=== PATIENT | female | born 1945 | race Caucasian/White ===

== ENCOUNTER 2023-04-13 12:43 | Day surgery (SDC) | payer MEDICARE, SELFPAY ==
--- NOTE | 2023-04-12 12:04 | P.CONAN_ITS ---
Documented by User: Mimi Irving NP 04/12/23 12:05 HPI - Anesthesia Eval Consult details Narrative: 78yo F for Colonoscopy hx RUL lobectomy PMFSH Past Medical History Medical History Heart murmur Abnormal colonoscopy Diabetes Cervical stenosis of spine Cervical polyp Depression Hyperlipidemia HTN (hypertension) Surgical History Surgical History Total knee replacement status History of salpingectomy Hx of tonsillectomy History of tubal ligation H/O dilation and curettage H/O breast biopsy History of lobectomy of lung Social History Social History Patient Tobacco Use Status: Former Tobacco user Tobacco use type: Cigarette Use of substances other than those prescribed or required for medical reasons: No Are you DNR?: No Advance Directives: No Advance Directives Information Provided: Yes Meds Allergies Allergy/AdvReac Type Severity Reaction Status Date / Time Sulfa (Sulfonamide Allergy Intermediate ITCHING Verified 04/13/23 13:48 Antibiotics) Home Medications Medication Instructions Recorded Confirmed Last Taken Type amlodipine 5 mg tablet 5 mg PO DAILY 04/12/23 04/13/23 04/13/23 History atorvastatin 80 mg tablet 80 mg PO DAILY 04/12/23 Unknown History duloxetine 30 mg capsule,delayed 30 mg PO DAILY 04/12/23 Unknown History release duloxetine 60 mg capsule,delayed 60 mg PO DAILY 04/12/23 Unknown History release fluoxetine 20 mg capsule 20 mg PO DAILY 04/12/23 Unknown History hydrochlorothiazide 25 mg tablet 25 mg PO DAILY 04/12/23 Unknown History hydroxyzine HCl 10 mg tablet 10 mg PO NEEDED 04/12/23 Unknown History metformin 750 mg tablet,extended 750 mg PO BID 04/12/23 Unknown History release 24 hr metoprolol succinate 100 mg 100 mg PO DAILY 04/12/23 04/13/23 04/13/23 History tablet,extended release 24 hr omeprazole 20 mg capsule,delayed 20 mg PO DAILY 04/12/23 Unknown History release ondansetron 4 mg disintegrating 4 mg PO BID PRN nausea/vomiting 04/12/23 Unknown History tablet potassium chloride 10 mEq 10 meq PO DAILY 04/12/23 Unknown History capsule,extended release ropinirole 0.25 mg tablet 0.25 mg PO BEDTIME 04/12/23 Unknown History sertraline 100 mg tablet 200 mg PO DAILY 04/12/23 Unknown History triamcinolone acetonide 0.1 % appl topical DAILY 04/12/23 Unknown History topical cream Exam Exam Date and Time: April 12, 2023 1204 Assessment and Plan Assessment Anesthesia Assessment: Chart Reviewed Documented by User: Viv Lopez MD 04/13/23 14:26 [facility] Past Medical History Medical History Heart murmur Abnormal colonoscopy Diabetes Cervical stenosis of spine Cervical polyp Depression Hyperlipidemia HTN (hypertension) Family History Family history of problems with anesthesia: No Surgical History Surgical History Total knee replacement status History of salpingectomy Hx of tonsillectomy History of tubal ligation H/O dilation and curettage H/O breast biopsy History of lobectomy of lung History of Problems with Anesthesia: No Social History Social History Patient Tobacco Use Status: Former Tobacco user Tobacco use type: Cigarette Use of substances other than those prescribed or required for medical reasons: No Are you DNR?: No Advance Directives: No Advance Directives Information Provided: Yes Meds Allergies Allergy/AdvReac Type Severity Reaction Status Date / Time Sulfa (Sulfonamide Allergy Intermediate ITCHING Verified 04/13/23 13:48 Antibiotics) Home Medications Medication Instructions Recorded Confirmed Last Taken Type amlodipine 5 mg tablet 5 mg PO DAILY 04/12/23 04/13/23 04/13/23 History atorvastatin 80 mg tablet 80 mg PO DAILY 04/12/23 Unknown History duloxetine 30 mg capsule,delayed 30 mg PO DAILY 04/12/23 Unknown History release duloxetine 60 mg capsule,delayed 60 mg PO DAILY 04/12/23 Unknown History release fluoxetine 20 mg capsule 20 mg PO DAILY 04/12/23 Unknown History hydrochlorothiazide 25 mg tablet 25 mg PO DAILY 04/12/23 Unknown History hydroxyzine HCl 10 mg tablet 10 mg PO NEEDED 04/12/23 Unknown History metformin 750 mg tablet,extended 750 mg PO BID 04/12/23 Unknown History release 24 hr metoprolol succinate 100 mg 100 mg PO DAILY 04/12/23 04/13/23 04/13/23 History tablet,extended release 24 hr omeprazole 20 mg capsule,delayed 20 mg PO DAILY 04/12/23 Unknown History release ondansetron 4 mg disintegrating 4 mg PO BID PRN nausea/vomiting 04/12/23 Unknown History tablet potassium chloride 10 mEq 10 meq PO DAILY 04/12/23 Unknown History capsule,extended release ropinirole 0.25 mg tablet 0.25 mg PO BEDTIME 04/12/23 Unknown History sertraline 100 mg tablet 200 mg PO DAILY 04/12/23 Unknown History triamcinolone acetonide 0.1 % appl topical DAILY 04/12/23 Unknown History topical cream Exam Airway Mallampati Class: II TM Dist: >3cm Heart: rrr Lungs: cta Assessment and Plan Assessment Anesthesia Assessment: Anesthesia Plan Discussed and Chart Reviewed (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
[2023-04-13 13:18] VITALS: BMI 26.1
[2023-04-13 13:38] VITALS: BP 125/66; PULSE 77; RESP 16; TEMP 36.2; O2SAT 98
[2023-04-13] MEDS: Lactated Ringers 1,000 ML 100 ML IVCONT (13:49)
[2023-04-13 14:10] LABS: Glucose, Whole Blood 133 mg/dL (60-115)
--- NOTE | 2023-04-13 14:44 | MHC.SHP ---
Pre-Procedural Eval Section A Date of Service: 04/13/23 The patient is an INPATIENT: No Changes since office visit: No Cold of Flu in the past 2 weeks, No New Medical Problems, No Changes in Medication and No Patient answered all questions The History & Physical has been completed within 30 days and I have reviewed it.: Yes Section B Chief Complaint: Abnormal results of function studies of other orga Allergies: Allergies Allergy/AdvReac Type Severity Reaction Status Date / Time Sulfa (Sulfonamide Allergy Intermediate ITCHING Verified 04/13/23 13:48 Antibiotics) Plan I have reviewed the history and physical and performed a pertinent physical examination on my patient. No changes have occurred unless specified. Time Spent With Patient Time: Total time managing care of this patient today ____ minutes.
--- NOTE | 2023-04-13 15:23 | PM.OP ---
Brief Operative Note Date of Service: 04/13/23 Pre-op diagnosis: abnl pet scan Post-op diagnosis: same Surgeon: Igor Blackburn Anesthesia: MAC Was an Floorworker Distributor used for this Procedure?: No Estimated blood loss (mL): 2 Pathology: other Condition: stable Disposition: PACU
[2023-04-13 15:24] VITALS: BP 140/64; PULSE 67; RESP 16; TEMP 36.4; O2SAT 97
[2023-04-13 15:39] VITALS: BP 135/57; PULSE 70; RESP 16; O2SAT 97
[2023-04-13 15:53] VITALS: BP 157/64; PULSE 65; RESP 16; O2SAT 99
[2023-04-13 16:07] VITALS: BP 159/68; PULSE 71; RESP 16; O2SAT 99
[2023-04-13 16:22] VITALS: BP 121/84; PULSE 67; RESP 20; TEMP 36.5; O2SAT 100
--- NOTE | 2023-04-13 17:46 | OP_ITS ---
DATE OF SERVICE: 04/13/2023 SURGEON: Igor Blackburn MD INDICATIONS: Abnormal PET scan of the abdomen and colon. PREOPERATIVE DIAGNOSIS: POSTOPERATIVE DIAGNOSIS: PROCEDURE PERFORMED: Colonoscopy to the cecum with biopsy. ESTIMATED BLOOD LOSS: COMPLICATIONS: ANESTHESIA: Monitored anesthesia care. ASSISTANTS: SPECIMENS: DESCRIPTION OF PROCEDURE: History and physical performed. The risks and benefits of the procedure were explained to the patient. Informed consent was obtained. The patient was placed in the left lateral decubitus position. A digital rectal exam was performed and was found to be normal. The Olympus pediatric video colonoscope was introduced into the rectum and advanced to the cecum. The cecum was identified by transillumination, palpation, and identification of ileocecal valve. Examination was performed. The scope was removed. She tolerated the procedure well and was taken to recovery room in stable condition. FINDINGS: The terminal ileum was not examined. There was a polyp on the inferior aspect of the ileocecal valve, which was removed with biopsy forceps. Two other hyperplastic appearing polyps in the rectosigmoid were identified, but not biopsied. There was no lesion to correspond with the findings on the PET scan in the vicinity of the splenic flexure. Mucosa appeared normal without a mass. There was mild sigmoid diverticulosis. Retroflexed examination showed some internal hemorrhoids. IMPRESSION: Colon polyp. RECOMMENDATION: Follow up the biopsy results. MD KATALINA Vargas/ALONSO / [id number]
== END 2023-04-13 16:40 | disposition home or self-care (01) ==
PROVIDERS: PCP Internal Medicine; Visit Provider Internal Medicine Gastroenterology
PROC: 0DJD8ZZ Inspection of Lower Intestinal Tract, Via Natural or Artificial Opening Endoscopic (ICD-10-PCS; CPT 45378; principal; 2023-04-13 13:50)
DX: R93.3 Abnormal findings on diagnostic imaging of other parts of digestive tract (principal); Z86.010 Personal history of colon polyps; K51.40 Inflammatory polyps of colon without complications; K57.30 Diverticulosis of large intestine without perforation or abscess without bleeding; K64.8 Other hemorrhoids; E11.9 Type 2 diabetes mellitus without complications; I10 Essential (primary) hypertension; E78.5 Hyperlipidemia, unspecified; M48.02 Spinal stenosis, cervical region; F32.A Depression, unspecified; Z85.118 Personal history of other malignant neoplasm of bronchus and lung; Z92.21 Personal history of antineoplastic chemotherapy; Z90.2 Acquired absence of lung [part of]; Z79.82 Long term (current) use of aspirin; Z79.84 Long term (current) use of oral hypoglycemic drugs; Z79.899 Other long term (current) drug therapy; Z87.891 Personal history of nicotine dependence
CPT/HCPCS: 45380; 82947; 88305

== ENCOUNTER 2024-01-05 06:52 | Outpatient (REF) | payer MEDICARE, SELFPAY ==
--- NOTE | ~2024-01-05 | XR_ITS ---
EXAMINATION: XR KNEE, RIGHT CLINICAL INFORMATION: Pain in right knee COMPARISON: None available. TECHNIQUE: Three views of the right knee. FINDINGS: Status post right knee arthroplasty. Hardware appears intact. Moderate joint effusion. Bones are diffusely demineralized. XR/XR knee RT 3V IMPRESSION: Status post right knee arthroplasty. Hardware appears intact. Moderate joint effusion.
== END 2024-01-05 06:53 | disposition home or self-care (01) ==
LOC: HO.HOSX 06:52
PROVIDERS: Visit Provider Orthopaedic Surgery
DX: M25.561 Pain in right knee (principal)
CPT/HCPCS: 73562; 99212

== ENCOUNTER 2024-01-05 13:09 | Outpatient (AMB) | payer MEDICARE, SELFPAY ==
--- NOTE | 2024-01-05 13:11 | MHC.OFFVIS ---
Intake Visit Reasons: N/P RT TKA 01/05/[address] Mcpherson Note: Jaylene 78 yr old female presents today for a new patient to re-establish care with Dr. Mendoza. Hx of RT TKA 01/05/[address] Mendoza. Pt states she is feeling great. She reports mild discomfort in her right knee. She has not take any medicines for discomfort. She continues with her home exercise program. Allergies Sulfa (Sulfonamide Antibiotics) Allergy (Intermediate, Verified 01/05/24 13:12) ITCHING Medication List - Last Reconciled 01/06/24 by Davin Mendoza MD amlodipine 5 mg PO DAILY atorvastatin 80 mg PO DAILY duloxetine 30 mg PO DAILY duloxetine 60 mg PO DAILY metformin ER 750 mg PO BID metoprolol succinate ER 100 mg PO DAILY omeprazole 20 mg PO DAILY potassium chloride ER 10 mEq PO DAILY ropinirole 0.25 mg PO BEDTIME triamcinolone acetonide 0.1% appl topical DAILY PFSH Medical History Heart murmur Abnormal colonoscopy Diabetes Cervical stenosis of spine Cervical polyp Depression Hyperlipidemia HTN (hypertension) Surgical History Total knee replacement status History of salpingectomy Hx of tonsillectomy History of tubal ligation H/O dilation and curettage H/O breast biopsy History of lobectomy of lung Social History Patient Tobacco Use Status: Former Tobacco user Tobacco use type: Cigarette Physical Exam Const Other: Well-nourished well-developed very friendly female awake alert and oriented x3 in no acute distress Extrem Other: Bilateral lower extremity examination shows good capillary refill, no skin lesions noted, normal sensation light touch Right knee examination shows the surgical incision is well healed, no erythema, full active extension and flexion to 120 degrees, her patella tracks well Results Reviewed Results Reviewed: X-rays of the patient's right knee show a total knee arthroplasty in good position with no signs of loosening, no acute bony abnormalities Assessment & Plan Assessment & Plan (1) Right knee pain: Code(s): M25.561 - Pain in right knee Category: Medical Plan Ms. Mulligan continues to do well after undergoing right total knee replacement surgery on 01/05/2019. She will continue with her home exercise program. She does know to take antibiotics before any dental work. She will contact me prior to her annual follow-up appointment should any questions or concerns arise. Feel free to call me at any time should questions regarding her orthopedic management arise. I spent 21 minutes in reviewing the patient's records and imaging studies, seeing the patient and documenting in the medical record. Orders: Orders XR knee RT 3V 01/05/24 M25.561 - Pain in right knee Coding Level of Care Code Est Pt Level 2 (12690) Diagnoses Right knee pain M25.561
== END 2024-01-05 14:02 | disposition home or self-care (01) ==
PROVIDERS: PCP Internal Medicine; Visit Provider Orthopaedic Surgery
DX: M25.561 Pain in right knee (principal)
CPT/HCPCS: 99213

== ENCOUNTER 2025-01-03 09:41 | Outpatient (AMB) | payer MEDICARE, SELFPAY ==
--- NOTE | 2025-01-03 10:16 | MHC.OFFVIS ---
Vital Signs 01/03/25 10:20 Height 5 ft 1 in Weight 138 lb BMI 26.1 Intake Visit Reasons: OV-RT TKA 01/05/19 Intake Note: Jaylene is an 79 year old female who presents today for a yearly follow up status post right total knee arthroplasty performed 01/05/2019. Patient reports she is doing well. She continues taking her antibiotics for dental procedures. She continues with her home exercise program. She denies any fevers or chills Allergies Sulfa (Sulfonamide Antibiotics) Allergy (Intermediate, Verified 01/05/24 13:12) ITCHING Medication List - Last Reconciled 01/03/25 by Davin Mendoza MD amlodipine 5 mg PO DAILY atorvastatin 80 mg PO DAILY duloxetine 30 mg PO DAILY duloxetine 60 mg PO DAILY metformin ER 750 mg PO BID metoprolol succinate ER 100 mg PO DAILY omeprazole 20 mg PO DAILY potassium chloride ER 10 mEq PO DAILY ropinirole 0.25 mg PO BEDTIME triamcinolone acetonide 0.1% appl topical DAILY PFSH Medical History Heart murmur Abnormal colonoscopy Diabetes Cervical stenosis of spine Cervical polyp Depression Hyperlipidemia HTN (hypertension) Surgical History Total knee replacement status History of salpingectomy Hx of tonsillectomy History of tubal ligation H/O dilation and curettage H/O breast biopsy History of lobectomy of lung Social History Patient Tobacco Use Status: Former Tobacco user Tobacco use type: Cigarette Physical Exam Vital Signs: BMI result Body Mass Index 26.1 Const Other: Well-nourished well-developed very friendly female awake alert and oriented x3 in no acute distress Extrem Other: Bilateral lower extremity examination shows good capillary refill, no skin lesions noted, normal sensation light touch Right knee examination shows that the surgical incision is well healed, no erythema, full active extension and flexion to 120 degrees, her patella tracks well Results Reviewed Results Reviewed: X-rays of the patient's right knee taken today show a total knee arthroplasty in good position with no signs of loosening, no acute bony abnormalities Assessment & Plan Assessment & Plan (1) Right knee pain: Code(s): M25.561 - Pain in right knee Category: Medical Plan Ms. Conde continues to do well after undergoing right total knee replacement surgery on 01/05/2019. She will continue with her home exercise program. She does know to take antibiotics before any dental work. She will contact me prior to her follow-up appointment in 1 year should any questions or concerns arise. Feel free to call me at any time should questions regarding her orthopedic management arise. I spent 21 minutes in reviewing the patient's records and imaging studies, seeing the patient and documenting in the medical record. Orders: Orders XR knee RT 3V Today M25.561 - Pain in right knee Coding Level of Care Code Est Pt Level 3 (51624) Complex EM visit Add On G2211 Diagnoses Right knee pain M25.561
[2025-01-03 10:20] VITALS: BMI 26.1
--- OUTSIDE RECORDS SUMMARY | 2025-01-03 10:52 | XMS_ITS | Data Portability ---
Author Organization [facility] ALICIA gould PAIN OFFICE Address [address] [facility],[address] [address] Care Team Providers Care Brand Representative Name Role Phone PHILLIP MCGRATH Primary Care Provider Assessment Encounter Date Assessment Date Assessment LastModified by Organization Details LastModified Time 02/16/2024 02/16/2024 Jaylene Conde i s a 79 year old woman with low back pain radiating into the left lower extremity. On exam ,she has pain on flexion. Straight leg raising test is positive on the left . MRI Lumbar spine which shows Multilevel degenerative changes most severe at the L4-L5 level with increased anterolisthesis, broad-based posterior disc bulging, facet arthritic changes, with new mild central canal narrowing and increased moderate neural foraminal narrowing. She is here for a Lumbar epidural steroid injection under fluoroscopic guidance . The risks and benefits of the procedure were discussed in detail. She wishes to proceed. She will call in one month. [email or web address] Not available 02/16/2024 14:56:12 04/03/2024 04/03/2024 Jaylene Conde i s a 79 year old woman with left sided low back pain. On exam ,she has pain on flexion. Straight leg raising test is positive on the left . MRI Lumbar spine which shows Multilevel degenerative changes most severe at the L4-L5 level with increased anterolisthesis, broad-based posterior disc bulging, facet arthritic changes, with new mild central canal narrowing and increased moderate neural foraminal narrowing. She is here for a Left lumbar radiofrequency ablation at L4, L5 and S1 levels under fluoroscopic guidance . The risks and benefits of the procedure were discussed in detail. She wishes to proceed. She will follow up fo a Lumbar epidural steroid injection under fluoroscopic guidance [email or web address] Not available 04/03/2024 16:28:48 05/30/2024 05/30/2024 Jaylene Conde i s a 79 year old woman with low back pain radiating into the left lower extremity. On exam ,she has pain on flexion. Straight leg raising test is positive on the left . MRI Lumbar spine which shows Multilevel degenerative changes most severe at the L4-L5 level with increased anterolisthesis, broad-based posterior disc bulging, facet arthritic changes, with new mild central canal narrowing and increased moderate neural foraminal narrowing. She is here for a Lumbar epidural steroid injection under fluoroscopic guidance . The risks and benefits of the procedure were discussed in detail. She wishes to proceed. She will call in one month. [email or web address] Not available 05/30/2024 11:18:46 09/05/2024 09/05/2024 Jaylene Conde i s a 79 year old woman with low back pain radiating into the left lower extremity. On exam ,she has pain on flexion. Straight leg raising test is positive on the left . MRI Lumbar spine which shows Multilevel degenerative changes most severe at the L4-L5 level with increased anterolisthesis, broad-based posterior disc bulging, facet arthritic changes, with new mild central canal narrowing and increased moderate neural foraminal narrowing. She is here for a Lumbar epidural steroid injection under fluoroscopic guidance . The risks and benefits of the procedure were discussed in detail. She wishes to proceed. She will follow up in three months [email or web address] Not available 09/05/2024 09:59:51 12/05/2024 12/05/2024 Jaylene Conde i s a 79 year old woman with low back pain radiating into the left lower extremity. On exam ,she has pain on flexion. Straight leg raising test is positive on the left . MRI Lumbar spine which shows Multilevel degenerative changes most severe at the L4-L5 level with increased anterolisthesis, broad-based posterior disc bulging, facet arthritic changes, with new mild central canal narrowing and increased moderate neural foraminal narrowing. She is here for a Lumbar epidural steroid injection under fluoroscopic guidance . The risks and benefits of the procedure were discussed in detail. She wishes to proceed. She will follow up in three months [email or web address] Not available 12/05/2024 09:46:43 Plan of Treatment Reminders Order Date Submit Date Provider Last Modified By Organization Details Last Modified Time Details Appointments PROCEDURE 2024 11:30A M Matty lazo MD Not available Not available Not available Lab None recorded. Referral None recorded. Procedures None recorded. Surgeries None recorded. Imaging None recorded. Medication Orders None recorded. Patient TargetsNo targets recorded. Patient Instructions Encounter Date Encounter Id Patient Instructions Last Modified By Organization Details Last Modified Time 02/16/2024 [id number] She was advised against bed rest lasting longer than four days and to continue activities as tolerated. [email or web address] Not available 02/16/2024 14:54:11 04/03/2024 [id number] She was advised against bed rest lasting longer than four days and to continue activities as tolerated. [email or web address] Not available 04/03/2024 16:27:09 05/30/2024 [id number] She was advised against bed rest lasting longer than four days and to continue activities as tolerated. [email or web address] Not available 05/30/2024 11:18:50 09/05/2024 [id number] She was advised against bed rest lasting longer than four days and to continue activities as tolerated. [email or web address] Not available 09/05/2024 09:58:24 12/05/2024 [id number] She was advised against bed rest lasting longer than four days and to continue activities as tolerated. [email or web address] Not available 12/05/2024 09:46:45 Reason for Referral None Reported. Problems Name Problem SNOMED Code Status Onset Date Resolution Date Notes Provider Name and Address Organization Details Recorded Time Pseudoclaud ication syndrome Completed 06/14/2013 Matty lazo MD [address] , [address], [place], [address], [place] [facility] 6 15:48:13 Displacemen t of lumbar interverteb ral disc without myelopathy 79052064 Active Matty lazo MD [address] , [address], [place], [address], [place] [facility] 6 15:48:13 Knee pain Active Matty lazo MD [address] , [address], [place], [address], [place] [facility] 6 15:50:37 Osteoarthri tis of knee 898141784 Active Matty lazo MD [address] [facility] , [address], [facility] [place], [address], [place] [facility] 6 15:50:37 Lumbosacral radiculitis 15688151 Active Matty lazo MD [address] [facility] , [address], [facility] [place], [address], [place] [facility] 6 15:48:13 Spinal stenosis of lumbar region 39559059 Active Matty lazo MD [address] [facility] , [address], [facility] [place], [address], [place] [facility] 6 15:48:13 Lumbosacral spondylosis without myelopathy 41448531 Active Matty lazo MD [address] [facility] [address], [facility] [place], [address], [place] [facility] 6 15:48:13 Problem Notes None recorded. Procedures Surgical History Date Name Laterality Status Provider Name and Address Organization Details Recorded Time 12/06/19 25 Lumbar Epidural steroid injection under fluoroscopic guidance completed Matty Niño MD [address] [facility] , [address], [place], [address], [place] [facility] 12/05/2024 09:48:16 09/05/19 25 Lumbar Epidural steroid injection under fluoroscopic guidance completed Matty Niño MD [address] [facility] , [address], [place], [address], [place] [facility] 09/05/2024 09:59:19 05/30/20 24 Lumbar Epidural steroid injection under fluoroscopic guidance completed Matty Niño MD [address] [facility] , [address], [place], [address], [place] [facility] 05/30/2024 11:19:16 04/03/20 24 Radiofrequency of Lumbar/Sacral medial branches supplying the facets under fluoroscopic guidance completed Matty Niño MD [address] , [address], [place], [address], [place] [facility] 04/03/2024 16:23:27 02/16/20 24 Lumbar Epidural steroid injection under fluoroscopic guidance completed Matty Niño MD [address] , [address], [place], [address], [place] [facility] 02/16/2024 14:55:32 11/29/19 24 Fluoroscopic Guided Lumbar Facet Steroid Injections of levels completed Matty Niño MD [address] , [address], [place], [address], [place] [facility] 11/29/2023 11:22:56 10/18/19 24 Lumbar Epidural steroid injection under fluoroscopic guidance completed Matty Niño MD [address] [facility] , [address], [place], [address], [place] [facility] 10/18/2023 11:55:29 07/20/20 23 Lumbar Epidural steroid injection under fluoroscopic guidance completed Matty Niño MD [address] [facility] , [address], [place], [address], [place] [facility] 07/20/2023 11:40:05 04/19/20 23 Lumbar Epidural steroid injection under fluoroscopic guidance completed Matty Niño MD [address] [facility] , [address], [place], [address], [place] [facility] 04/19/2023 09:38:38 12/15/19 23 Lumbar Epidural steroid injection under fluoroscopic guidance completed Matty Niño MD [address] [facility] , [address], [place], [address], [place] [facility] 12/14/2022 10:59:59 09/01/19 23 Lumbar Epidural steroid injection under fluoroscopic guidance completed Matty Niño MD [address] , [address], [place], [address], [place] [facility] 09/02/2022 15:03:56 03/31/20 22 Lumbar Epidural steroid injection under fluoroscopic guidance completed Matty Niño MD [address] , [address], [place], [address], [place] [facility] 03/31/2022 15:27:19 12/03/19 22 Lumbar Epidural steroid injection under fluoroscopic guidance completed Matty Niño MD [address] , [address], [place], [address], [place] [facility] 12/02/2021 11:25:00 08/11/19 22 Lumbar Epidural steroid injection under fluoroscopic guidance completed Matty Niño MD [address] , [address], [place], [address], [place] [facility] 08/11/2021 11:20:15 04/21/20 21 Lumbar Epidural steroid injection under fluoroscopic guidance completed Matty Niño MD [address] , [address], [place], [address], [place] [facility] 04/21/2021 10:58:57 01/21/20 21 Lumbar Epidural steroid injection under fluoroscopic guidance completed Matty Niño MD [address] , [address], [place], [address], [place] [facility] 01/20/2021 10:30:55 10/16/19 21 Lumbar Epidural steroid injection under fluoroscopic guidance completed Matty Niño MD [address] , [address], [place], [address], [place] [facility] 10/15/2020 11:28:09 07/02/20 20 Lumbar Epidural steroid injection under fluoroscopic guidance completed Matty Niño MD [address] [facility] , [address], [place], [address], [place] [facility] 07/02/2020 11:26:17 04/02/20 20 Lumbar Epidural steroid injection under fluoroscopic guidance completed Matty Niño MD [address] [facility] , [address], [place], [address], [place] [facility] 04/02/2020 10:31:26 01/09/20 20 Lumbar Epidural steroid injection under fluoroscopic guidance completed Matty Niño MD [address] [facility] , [address], [place], [address], [place] [facility] 01/09/2020 13:44:21 10/09/19 20 Lumbar Epidural steroid injection under fluoroscopic guidance completed Matty Niño MD [address] , [address], [place], [address], [place] [facility] 10/09/2019 16:25:31 07/10/20 19 Lumbar Epidural steroid injection under fluoroscopic guidance completed Matty Niño MD [address] , [address], [place], [address], [place] [facility] 07/13/2019 11:09:18 04/03/20 19 Lumbar Epidural steroid injection under fluoroscopic guidance completed Matty Niño MD [address] , [address], [place], [address], [place] [facility] 04/03/2019 10:55:44 01/06/20 19 total knee replacement completed Matty Niño MD [address] [facility] , [address], [place], [address], [place] [facility] 04/03/2019 08:49:03 12/13/19 19 Lumbar Epidural steroid injection under fluoroscopic guidance completed Matty Niño MD [address] , [address], [place], [address], [place] [facility] 12/12/2018 11:08:36 10/04/19 19 Fluoroscopic Guided Lumbar Facet Steroid Injections of levels completed Matty Niño MD [address] [facility] , [address], [place], [address], [place] [facility] 10/05/2018 10:15:50 07/11/20 18 Fluoroscopic Guided Lumbar Facet Steroid Injections of levels completed Matty Niño MD [address] , [address], [place], [address], [place] [facility] 07/13/2018 11:56:01 06/05/20 18 Intra-articular Knee Steroid Injection completed Matty Niño MD [address] , [address], [place], [address], [place] [facility] 06/05/2018 09:25:01 05/17/20 18 Fluoroscopic Guided Lumbar Facet Steroid Injections of levels completed Matty Niño MD [address] , [address], [place], [address], [place] [facility] 05/17/2018 15:45:50 02/28/20 18 Intra-articular Knee Steroid Injection completed Matty Niño MD [address] , [address], [place], [address], [place] [facility] 02/27/2018 10:33:32 02/15/20 18 Fluoroscopic Guided Lumbar Facet Steroid Injections of levels completed Matty Niño MD [address] , [address], [place], [address], [place] [facility] 02/15/2018 09:24:04 11/02/19 18 Fluoroscopic Guided Lumbar Facet Steroid Injections of levels completed Matty Niño MD [address] , [address], [place], [address], [place] [facility] 11/07/2017 10:14:22 10/14/19 18 Intra-articular Knee Steroid Injection completed Matty Niño MD [address] , [address], [place], [address], [place] [facility] 10/13/2017 10:02:51 07/12/20 17 Fluoroscopic Guided Lumbar Facet Steroid Injections of levels completed Matty Niño MD [address] , [address], [place], [address], [place] [facility] 07/14/2017 11:15:11 02/08/20 17 Intra-articular Knee Steroid Injection completed Matty Niño MD [address] , [address], [place], [address], [place] [facility] 02/08/2017 18:52:47 10/14/19 17 Fluoroscopic Guided Lumbar Facet Steroid Injections of levels completed Matty Niño MD [address] , [address], [place], [address], [place] [facility] 10/13/2016 15:24:56 07/19/20 16 Intra-articular Knee Steroid Injection completed Matty Niño MD [address] , [address], [place], [address], [place] [facility] 07/28/2016 10:25:44 07/07/20 16 Fluoroscopic Guided Lumbar Facet Steroid Injections of levels completed Matty Niño MD [address] , [address], [place], [address], [place] [facility] 07/07/2016 10:00:35 06/02/20 16 Fluoroscopic Guided Lumbar Facet Steroid Injections of levels completed Matty Niño MD [address] , [address], [place], [address], [place] [facility] 06/03/2016 15:18:15 01/01/20 16 Intra-articular Knee Steroid Injection completed Matty Niño MD [address] , [address], [place], [address], [place] [facility] 01/01/2016 15:50:37 12/25/19 16 Intra-articular Knee Steroid Injection completed Matty Niño MD [address] , [address], [place], [address], [place] [facility] 12/25/2015 09:53:14 12/10/19 16 Fluoroscopic Guided Lumbar Facet Steroid Injections of levels completed Matty Niño MD [address] , [address], [place], [address], [place] [facility] 12/10/2015 09:54:26 05/06/20 15 Intra-articular Knee Steroid Injection completed Matty Niño MD [address] , [address], [place], [address], [place] [facility] 05/06/2015 10:06:19 04/29/20 15 Intra-articular Knee Steroid Injection completed Matty Niño MD [address] , [address], [place], [address], [place] [facility] 04/29/2015 09:48:50 04/14/20 15 Radiofrequency of Lumbar/Sacral medial branches supplying the facets under fluoroscopic guidance completed Matty Niño MD [address] , [address], [place], [address], [place] [facility] 04/16/2015 15:56:21 12/10/19 15 Fluoroscopic Guided Lumbar Facet Steroid Injections of levels completed Matty Niño MD [address] , [address], [place], [address], [place] [facility] 12/09/2014 14:17:43 05/20/20 14 Fluoroscopic Guided Lumbar Facet Steroid Injections of levels completed Matty Niño MD [address] , [address], [place], [address], [place] [facility] 05/20/2014 14:51:02 09/10/19 14 Fluoroscopic Guided Lumbar Facet Steroid Injections of levels completed Matty Niño MD [address] , [address], [place], [address], [place] [facility] 09/11/2013 11:49:32 06/12/20 13 Lumbar Epidural steroid injection under fluoroscopic guidance completed Matty Niño MD [address] , [address], [place], [address], [place] [facility] 06/14/2013 10:25:02 01/16/20 13 Lumbar Epidural steroid injection under fluoroscopic guidance completed Matty Niño MD [address] [facility] , [address], [place], [address], [place] [facility] 01/16/2013 13:31:17 12/12/19 13 Lumbar Epidural steroid injection under fluoroscopic guidance completed Matty Niño MD [address] , [address], [place], [address], [place] [facility] 12/12/2012 13:12:25 Other completed Jaylene Velasco [place] [facility] 10/13/2017 09:33:19 Arthroscopic Surgery completed Matty Niño MD [address] , [address], [place], [address], [place] [facility] 11/22/2012 11:31:12 Tonsillectomy completed Matty Niño MD [address] , [address], [place], [address], [place] [facility] 11/22/2012 09:49:36 Breast Surgery completed Matty Niño MD [address] [facility] , [address], [place], [address], [place] [facility] 11/22/2012 09:49:36 Tubal Ligation completed Matty Niño MD [address] [facility] , [address], [place], [address], [place] [facility] 11/22/2012 11:31:39 Other completed Matty Niño MD [address] , [address], [place], [address], [place] [facility] 11/22/2012 11:31:39 Imaging Results None recorded. Procedure Notes None recorded. Medical Equipment None Reported. Allergies Allergen ID Allergen Name Allergen Category Reaction Reaction Severity Criticality Documentation Date Start Date Code Code System Note Provider Name and Address Organization Details Recorded Time 5141 Substance with sulfonami de structure and antibacte rial mechanism of action (substanc e) medicatio n itching Not available Not available 11/22/2012 83609 8003 SNOMED Matty lazo MD [address] [facility] , [address], [place], [address], [place] [facility] 3 09:56:33 Medications Name Sig Start Date Stop Date Status Note LastModified by Organization Details LastModified Time freestyle lite blood glucose monito ring system w/device kit active Not Available Not Available Not Available freestyle mis lancets active Not Available Not Available Not Available fluoxetin e 40 mg capsule TAKE 1 CAPSULE BY MOUTH EVERY DAY FOR 90 DAYS active Not Available Not Available No t Available cyclobenz aprine 10 mg tablet TAKE 1 TABLET BY MOUTH AT BEDTIME active Not Available Not Available No t Available amoxicill in 500 mg capsule TAKE 4 CAPSULES BY MOUTH 1 HOUR BEFORE DENTAL APPOINTM ENT WITH NO SECOND DOSE active Not Available Not Available No t Available atorvasta tin 40 mg tablet active Not Available Not Available Not Available metformin 500 mg tablet Take 1 tablet every day by oral route. 05/17 completed Not Available Not Available Not Available atorvasta tin 80 mg tablet TAKE 1 TABLET BY MOUTH EVERY DAY FOR 90 DAYS active Not Available Not Available No t Available potassium chloride ER 10 mEq capsule,e xtended release TAKE 1 CAPSULE BY MOUTH ONCE A DAY WITH FOOD 12/05 completed Not Available Not Available Not Available acetamino phen 325 mg tablet TAKE 3 TABS BY MOUTH EVERY 8 HRS FOR 7 DAYS 05/17 completed Not Available Not Available Not Available doxycycli ne hyclate 100 mg capsule TAKE 1 CAPSULE BY MOUTH TWICE A DAY 03/31 completed Not Available Not Available Not Available donepezil 5 mg tablet TAKE 1 TABLET BY MOUTH EVERY DAY IN THE EVENING 04/21 completed Not Available Not Available Not Available azithromy parminder 250 mg tablet 04/02 completed Not Available Not Available Not Available ofloxacin 0.3 % eye drops INSTILL 1 DROP INTO LEFT EYE 4 TIMES A DAY 12/05 completed Not Available Not Available Not Available FreeStyle Test strips USE 3 TIMES DAILY active Not Available Not Available No t Available dronabino l 5 mg capsule TAKE ONE CAPSULE BY MOUTH EVERY 4 HOURS 10/13 completed Not Available Not Available Not Available ondansetr on HCl 8 mg tablet TAKE 1 TABLET BY MOUTH EVERY 8 HOURS NEEDED FOR NAUSEA/V OMITING 10/13 completed Not Available Not Available Not Available donepezil 10 mg tablet TAKE 1 TABLET BY MOUTH EVERY EVENING 03/31 completed Not Available Not Available Not Available FreeStyle Lancets 28 gauge USE TO TEST BLOOD SUGAR 4 TIMES A DAY OR DIRECTED active Not Available Not Available No t Available ondansetr on HCl 4 mg tablet 07/12 completed Not Available Not Available Not Available metoprolo l succinate ER 100 mg tablet,ex tended release 24 hr TAKE 1 TABLET BY MOUTH EVERY DAY FOR 90 DAYS active Not Available Not Available No t Available sertralin e 100 mg tablet TAKE 2 TABLETS BY MOUTH EVERY DAY 04/19 completed Not Available Not Available Not Available olanzapin e 5 mg tablet 07/12 completed Not Available Not Available Not Available amlodipin e 2.5 mg tablet TAKE 1 TABLET BY MOUTH EVERY DAY active Not Available Not Available No t Available acetamino phen 300 mg-codein e 30 mg tablet active Not Available Not Available Not Available amlodipin e 5 mg tablet TAKE 1 TABLET BY MOUTH EVERY DAY active Not Available Not Available No t Available prochlorp erazine maleate 10 mg tablet 10/13 completed Not Available Not Available Not Available ciproflox acin 500 mg tablet TAKE 1 TABLET TWO TIMES A DAY 02/07 completed Not Available Not Available Not Available aspirin 81 mg tablet,de layed release Take 1 tablet every day by oral route. 08/11 completed Not Available Not Available Not Available triamcino lone acetonide 0.1 % topical cream APPLY BY TOPICAL ROUTE EVERY DAY A THIN FILM TO THE AFFECTED SKIN AREAS active Not Available Not Available No t Available amoxicill in 500 mg tablet TAKE 4 TABS 1 HOUR PRIOR TO DENTAL APPOINTM ENT active Not Available Not Available No t Available lidocaine -prilocai ne 2.5 %-2.5 % topical cream 05/17 completed Not Available Not Available Not Available potassium chloride 20 mEq/15 mL oral liquid TAKE 15ML BY MOUTH EVERY DAY. DILUTE WITH AT LEAST 6 OUNCES OF FLUIDS AND TAKE WITH FOOD 10/13 completed Not Available Not Available Not Available ketorolac 0.5 % eye drops INSTILL 1 DROP INTO LEFT EYE 4 TIMES A DAY 12/05 completed Not Available Not Available Not Available prednisol one acetate 1 % eye drops,salena pension INSTILL 1 DROP INTO LEFT EYE 4 TIMES A DAY 12/05 completed Not Available Not Available Not Available lorazepam 0.5 mg tablet TAKE ONE TABLET BY MOUTH EVERY 6 HOURS NEEDED FOR ANIXTY,N AUSEA OR SLEEP 10/13 completed Not Available Not Available Not Available ropinirol e 0.25 mg tablet TAKE 1 TABLET BY MOUTH EVERYDAY AT BEDTIME active Not Available Not Available No t Available meclizine 25 mg tablet TAKE 1 TABLET BY MOUTH 3 TIMES A DAY NEEDED VERTIGO SYMPTOMS active Not Available Not Available No t Available cephalexi n 500 mg capsule TAKE 1 CAPSULE BY MOUTH EVERY 8 HOURS FOR 7 DAYS 09/05 completed Not Available Not Available Not Available dexametha sone 4 mg tablet 07/12 completed Not Available Not Available Not Available ramipril 2.5 mg capsule TAKE 1 CAPSULE BY MOUTH EVERY DAY active Not Available Not Available No t Available warfarin 5 mg tablet TAKE 1 - 2 TABLET BY ORAL ROUTE EVERY DAY OR DIRECTED BY PHYSICIA N 04/03 completed Not Available Not Available Not Available brimonidi ne 0.2 % eye drops INSTILL 1 DROP INTO LEFT EYE TWICE A DAY 12/05 completed Not Available Not Available Not Available metoprolo l tartrate 50 mg tablet 07/12 completed Not Available Not Available Not Available ibuprofen 200 mg tablet 4 tab daily active NSAID Not Available Not Available No t Available diclofena c potassium 50 mg tablet Take 1 tablet twice a day by oral route for 30 days. 07/12 completed Not Available Not Available Not Available omeprazol e 20 mg capsule,d elayed release TAKE 1 TABLET ORALLY ONCE A DAY BEFORE MEALS active Not Available Not Available No t Available codeine 10 mg-guaife nesin 100 mg/5 mL oral liquid TAKE 1 TEASPOON FULL 3 TIMES A DAY NEEDDED 05/17 completed Not Available Not Available Not Available hydrochlo rothiazid e 25 mg tablet TAKE 1 TABLET BY MOUTH EVERY DAY 10/17 completed Not Available Not Available Not Available furosemid e 20 mg tablet 10/13 completed Not Available Not Available Not Available warfarin 1 mg tablet TAKE 1 - 2 TABLET BY ORAL ROUTE EVERY DAY 04/03 completed Not Available Not Available Not Available ibuprofen 600 mg tablet 12/08 completed as needed Not Available Not Available Not Available levofloxa parminder 500 mg tablet TAKE 1 TAB DAILY FOR 10 DAYS 04/03 completed Not Available Not Available Not Available methylpre dnisolone 4 mg tablets in a dose pack TAKE DIRECTED 12/02 completed Not Available Not Available Not Available timolol maleate 0.5 % eye drops INSTILL ONE DROP IN THE LEFT EYE IN THE MORNING 12/05 completed Not Available Not Available Not Available hydroxyzi ne HCl 10 mg tablet TAKE 1 TABLET BY MOUTH NEEDED 10/17 completed Not Available Not Available Not Available ondansetr on 4 mg disintegr ating tablet TAKE 1 TABLET BY MOUTH TWICE DAILY FOR 7 DAYS, ALLOW TO DISSOLVE ON TONGUE 07/20 completed Not Available Not Available Not Available fluoxetin e 20 mg capsule TAKE 1 CAPSULE BY MOUTH EVERY DAY FOR 90 DAYS active Not Available Not Available No t Available fluticaso ne propionat e 50 mcg/actua tion nasal spray,salena pension USE 1 TO 2 SPRAYS INTO EACH NOSTRIL DAILY NEEDED active Flonase Not Available Not Available No t Available diazepam 5 mg tablet TAKE 1 TABLET BY MOUTH AT BEDTIME AND 1 TABLET 1 HOUR PRIOR TO PROCEDUR E active Not Available Not Available No t Available Cardizem LA 360 mg tablet,ex tended release active Not Available Not Available Not Available Flexeril 5 mg tablet Take 1 tablet every day by oral route. active once at night Not Available Not Available Not Available metformin ER 750 mg tablet,ex tended release 24 hr TAKE 1 TABLET BY MOUTH TWICE A DAY active Not Available Not Available No t Available Stool Softener- Laxative 8.6 mg-50 mg tablet TAKE 1 TAB BY MOUTH 2 TIMES A DAY FOR 7 DAYS 10/13 completed Not Available Not Available Not Available memantine 10 mg tablet TAKE 1 TABLET BY MOUTH TWICE A DAY. For Memory. 03/31 completed Not Available Not Available Not Available memantine 5 mg tablet TAKE 1 TABLET BY MOUTH ONCE DAILY FOR 1 WEEK THEN 1 TABLET TWICE DAILY 03/31 completed Not Available Not Available Not Available nitrofura ntoin monohydra te/macroc rystals 100 mg capsule TAKE 1 CAPSULE BY MOUTH EVERY 12 HOURS WITH FOOD 01/20 completed Not Available Not Available Not Available duloxetin e 30 mg capsule,d elayed release TAKE 1 CAPSULE BY MOUTH EVERY DAY 07/20 completed Not Available Not Available Not Available duloxetin e 60 mg capsule,d elayed release TAKE 1 CAPSULE BY MOUTH EVERY DAY FOR 30 DAYS 07/20 completed Not Available Not Available Not Available Aricept 08/11 completed Not Available Not Available Not Available ProAir HFA 90 mcg/actua tion aerosol inhaler INHALE 2 PUFF BY INHALATI ON ROUTE EVERY 4 TO 6 HOURS NEEDED active Bronchod ilator. Treats Bronchos pasms Not Available Not Available Not Available FreeStyle Lite Meter kit TEST BY FINGERST ICK ROUTE 4 TIMES A DAY active Not Available Not Available No t Available Symbicort 07/12 completed Not Available Not Available Not Available oxycodone 10 mg tablet 07/12 completed Not Available Not Available Not Available Prevnar 13 (PF) 0.5 mL intramusc ular syringe PHARMACY ADMINIST ERED 04/21 completed Not Available Not Available Not Available OneTomariana Sharif Lancets 30 gauge active Not Available Not Available Not Available nivolumab infusion every 2 weeks x 26 weeks. 12/08 completed Not Available Not Available Not Available Fluzone High-Dose 2014- (PF) 180 mcg/0.5 mL intramusc ular syringe active Not Available Not Available Not Available Fluad 2016- 65yr up(PF)45 mcg(15 mcgx3)/0. 5 mL intramusc ular syringe 07/12 completed Not Available Not Available Not Available Fluzone High-Dose 0125-2604 (PF) 180 mcg/0.5 mL intramusc ular syringe TO BE ADMINIST ERED BY PHARMACMetallkraft AS ST FOR IMMUNIZA TION 05/17 completed Not Available Not Available Not Available Fluzone High-Dose 2018- (PF) 180 mcg/0.5 mL intramusc ular syringe TO BE ADMINIST ERED BY [employer] FOR IMMUNIZA TION 01/20 completed Not Available Not Available Not Available Fluzone High-Dose Quad (PF) 240 mcg/0.7 mL IM syringe PHARMACY ADMINIST ERED 01/20 completed Not Available Not Available Not Available Paxlovid 300 mg (150 mg x 2)-100 mg tablets in a dose pack TAKE 3 TABLETS BY MOUTH TWICE A DAY FOR 5 DAYS DIRECTED 07/20 completed Not Available Not Available Not Available Vitals Date Recorded Body height Heart rate Oxygen saturation Oxygen saturation in Arterial blood by Pulse oximetry Systolic blood pressure Diastolic blood pressure Provider Name and Address Organization Details Last Updated DateTime 5 157.48 cm 59 /min 96 % 96 % 154 mm[Hg] 65 mm[Hg] Goldie Higgins [place] - [facility] 5 09:33:49 Date Recorded Body height Heart rate Oxygen saturation Oxygen saturation in Arterial blood by Pulse oximetry Systolic blood pressure Diastolic blood pressure Provider Name and Address Organization Details Last Updated DateTime 5 157.48 cm 62 /min 97 % 97 % 155 mm[Hg] 58 mm[Hg] Matty lazo MD [address] [facility] , [address], [facility] [place], [address], [place] - [facility] 5 09:25:53 Date Recorded Body height Heart rate Oxygen saturation Oxygen saturation in Arterial blood by Pulse oximetry Systolic blood pressure Diastolic blood pressure Provider Name and Address Organization Details Last Updated DateTime 4 157.48 cm 91 /min 98 % 98 % 118 mm[Hg] 68 mm[Hg] Romina suarez [place] - [facility] 4 13:52:56 Date Recorded Body height Heart rate Oxygen saturation Oxygen saturation in Arterial blood by Pulse oximetry Systolic blood pressure Diastolic blood pressure Provider Name and Address Organization Details Last Updated DateTime 4 157.48 cm 60 /min 97 % 97 % 144 mm[Hg] 62 mm[Hg] Nayeli Cutler [place] - [facility] 4 13:07:25 Date Recorded Body height Heart rate Oxygen saturation Oxygen saturation in Arterial blood by Pulse oximetry Systolic blood pressure Diastolic blood pressure Provider Name and Address Organization Details Last Updated DateTime 4 157.48 cm 56 /min 97 % 97 % 167 mm[Hg] 51 mm[Hg] Goldie Higgins [place] - [facility] 4 10:50:12 Social History Question Answer Notes LastModified by Organizat ion Details LastModified Time Tobacco Smoking Status Never Smoker Not Available [employer] 05/16/2020 03:16:10 Education 2 Year College Medical Assisting Information not available 11/22/2012 Live Alone Or With Others? With Others Information not available 11/22/2012 Marital Status 2 Children Information not available 11/22/2012 What Was The Date Of Your Most Recent Tobacco Screening? 12/12/2018 [id number] Information not available 05/16/2020 Sex: Unknown Functional Status Question Answer Note LastModified by Organizat ion Details LastModified Time What is your level of alcohol consumption? 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 Other [employer] Information not available 12/28/2024 Mental Status None recorded. Family History Relationship Description Onset Age of this Age Resolved Age Notes LastModified by Organization Details LastModified Time Mother Malignant neoplastic disease breast (previ ously record ed as Cancer ) [email or web address] Not available 01/01/2016 15:48:27 Medical History Condition Response Hyperlipidemia Y Cancer Y Arthritis Y Hypertension Y Depression Y High Cholesterol Y Gynecological HistoryNo gynecological history recorded. Obstetrics History GPAL:G 0 P 0 0 0 0 Immunizations Vaccine Type Date Status Note Provider Nam e and Address Organization Details Recorded Time influenza, unspecified formulation 04/01/2023 completed Goldie hilton [facility] 07/20/2023 11:18:21 Past Encounters Encounter ID Performer Location Encounter Start Date Encounter Closed Date Diagnosis/Indication Diagnosis SNOMED-CT Code Diagnosis ICD10 Code Diagnosis Note [id number] Matty Niño MD PAIN OFFICE [address] [place] [address] 11/22/2012 08:53:26 11/22/2012 11:38:07 [id number] Matty Niño MD PAIN OFFICE [address] [place] [address] 12/11/2012 12:51:24 12/11/2012 15:51:10 [id number] Matty Niño MD PAIN OFFICE [address] [place] [address] 2013 08:58:20 2013 09:24:55 [id number] Matty Niño MD PAIN OFFICE [address] [facility] [place] [address] 01/15/2013 10:25:52 01/15/2013 16:13:49 [id number] Matty Niño MD [facility] [address] [facility] [place] [address] 03/28/2013 09:57:41 03/29/2013 08:41:10 [id number] Matty Niño MD PAIN OFFICE [address] [facility] [place] [address] 06/12/2013 11:30:16 06/12/2013 15:44:20 Displaceme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 20020507 Lumbosacra l radiculitis 27500209 Spinal nikos nosis of lumbar region 59003913 [id number] Matty Niño MD [facility] [address] [place] [address] 09/10/2013 12:46:37 09/11/2013 11:50:14 Spinal stenosis of lumbar region 18498100 Displaceme 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 52747019 Lumbosacra l radiculitis 31997731 Lumbosacra l spondylosis without myelopathy 33514275 [id number] Matty Niño MD PAIN OFFICE [address] [facility] [place] [address] 10/30/2013 09:59:44 11/01/2013 15:38:06 Spinal stenosis of lumbar region 13887046 Lumbosacra l spondylosis without myelopathy 88007669 Displaceme 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 71703646 Lumbosacra l radiculitis 31161342 [id number] Matty Niño MD PAIN OFFICE [address] [facility] [place] [address] 05/20/2014 12:52:48 05/21/2014 10:32:29 Spinal stenosis of lumbar region 79455409 Lumbosacra l spondylosis without myelopathy 00975405 Displaceme 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 36766836 Lumbosacra l radiculitis 56188219 [id number] Matty Niño MD PAIN OFFICE [address] [facility] [place] [address] 12/09/2014 13:17:46 12/10/2014 11:29:06 Spinal stenosis of lumbar region 37444215 Lumbosacra l spondylosis without myelopathy 23569822 Displaceme 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 08866091 Lumbosacra l radiculitis 82831337 [id number] Matty Niño MD PAIN OFFICE [address] [facility] [place] [address] 01/21/2015 09:33:08 01/21/2015 10:33:33 Spinal stenosis of lumbar region 77046990 Lumbosacra l spondylosis without myelopathy 01229955 Displaceme 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 27813569 Lumbosacra l radiculitis 00915173 [id number] Matty Niño MD PAIN OFFICE [address] [facility] [place] [address] 04/14/2015 10:47:24 04/15/2015 10:52:27 Spinal stenosis of lumbar region 26720176 Lumbosacra l spondylosis without myelopathy 10450396 Displaceme 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 79653358 Lumbosacra l radiculitis 77997437 [id number] Matty Niño MD PAIN OFFICE [address] [facility] [place] [address] 04/29/2015 09:00:58 04/29/2015 09:49:25 Knee pain 17915018 Osteoarthr itis of knee 238349667 [id number] Matty Niño MD [facility] [address] [facility] [place] [address] 05/06/2015 09:29:34 05/06/2015 10:06:58 Knee pain 14750035 M25.561 M25.562 Osteoarthr itis of knee 034563908 M17.0 [id number] Matty Niño MD PAIN OFFICE [address] [facility] [place] [address] 12/10/2015 08:29:54 12/10/2015 09:57:07 Knee pain 65753898 M25.561 M25.562 Osteoarthr itis of knee 718235822 M17.0 Lumbosacra l spondylosis without myelopathy 96936742 M47.817 Displaceme 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 10685841 M51.26 Spinal nikos nosis of lumbar region 91712079 M48.06 Lumbosacra l radiculitis 24904315 M54.17 [id number] Matty Niño MD PAIN OFFICE [address] [facility] [place] [address] 12/25/2015 08:58:52 12/25/2015 10:28:10 Osteoarthritis of knee 164013757 M17.9 Knee pain 48928139 M25.5 61 M25.562 [id number] Matty Niño MD PAIN OFFICE [address] [facility] [place] [address] 01/01/2016 10:08:52 01/01/2016 15:51:12 Knee pain 40938381 M25.561 M25.562 Osteoarthr itis of knee 612560349 M17.9 M17.0 [id number] Matty Niño MD [facility] PA[facility] [address] [place] [address] 06/02/2016 13:17:20 06/03/2016 15:23:48 Spinal stenosis of lumbar region 41337628 M48.06 Lumbosacra l spondylosis without myelopathy 32710845 M47.817 Displaceme 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 87531677 M51.26 Lumbosacra l radiculitis 81702449 M54.17 [id number] Matty Niño MD PAIN OFFICE [address] [place] [address] 07/07/2016 09:30:29 07/07/2016 13:22:46 Lumbosacral spondylosis without myelopathy 83208145 M47.817 Spinal nikos nosis of lumbar region 72311507 M48.06 Displaceme 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 73499661 M51.26 Lumbosacra l radiculitis 38627142 M54.17 [id number] Matty Niño MD PAIN OFFICE [address] [place] [address] 07/19/2016 14:30:19 07/28/2016 11:06:35 Osteoarthritis of knee 481915939 M17.9 Knee pain 41178170 M25.5 61 M25.562 [id number] Matty Niño MD PAIN OFFICE [address] [place] [address] 10/13/2016 08:57:34 10/13/2016 15:39:11 Spinal stenosis of lumbar region 82190504 M48.06 Lumbosacra l spondylosis without myelopathy 85243252 M47.817 Displaceme 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 13038815 M51.26 Lumbosacra l radiculitis 80409098 M54.17 [id number] Matty Niño MD PAIN OFFICE [address] [place] [address] 02/07/2017 15:27:11 02/09/2017 11:10:45 Osteoarthritis of knee 137159223 M17.9 Knee pain 29664037 M25.5 61 M25.562 [id number] Matty Niño MD [facility] [address] [facility] [place] [address] 07/12/2017 10:28:51 07/14/2017 11:20:56 Spinal stenosis of lumbar region 87890570 M48.062 Lumbosacra l spondylosis without myelopathy 74385125 M47.817 Displaceme 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 11624698 M51.26 Lumbosacra l radiculitis 37935050 M54.17 [id number] Matty Niño MD [facility] [address] [place] [address] 10/13/2017 08:59:24 10/13/2017 10:10:53 Osteoarthritis of knee 730092473 M17.9 Knee pain 96260046 M25.5 61 M25.562 [id number] Matty Niño MD [facility] [address] [place] [address] 11/01/2017 08:50:41 11/01/2017 09:52:01 Spinal stenosis of lumbar region 34556266 M48.062 Lumbosacra l spondylosis without myelopathy 71410503 M47.817 Displaceme 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 12979957 M51.26 Lumbosacra l radiculitis 24719215 M54.17 [id number] Matty Niño MD [facility] [address] [place] [address] 02/14/2018 11:00:06 02/15/2018 09:51:01 Spinal stenosis of lumbar region 18921560 M48.062 Lumbosacra l spondylosis without myelopathy 20509035 M47.817 Displaceme 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 59121758 M51.26 Lumbosacra l radiculitis 58058914 M54.17 [id number] Matty Niño MD [facility] [address] [place] [address] 02/27/2018 09:23:10 02/27/2018 10:35:42 Osteoarthritis of knee 325545228 M17.9 Knee pain 60502242 M25.5 61 M25.562 [id number] Matty Niño MD PAIN OFFICE [address] [place] [address] 05/17/2018 08:26:43 05/17/2018 15:49:45 Spinal stenosis of lumbar region 10010293 M48.062 Lumbosacra l spondylosis without myelopathy 55128764 M47.817 Displaceme 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 25335014 M51.26 Lumbosacra l radiculitis 63935771 M54.17 [id number] Matty Niño MD PAIN OFFICE [address] [place] [address] 06/05/2018 08:24:56 06/05/2018 09:27:35 Osteoarthritis of knee 916580406 M17.9 Knee pain 78257305 M25.5 61 M25.562 [id number] Matty Niño MD PAIN OFFICE [address] [place] [address] 07/11/2018 08:58:55 07/13/2018 15:49:54 Spinal stenosis of lumbar region 99072970 M48.062 Lumbosacra l spondylosis without myelopathy 54672395 M47.817 Displaceme 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 65997194 M51.26 Lumbosacra l radiculitis 32459108 M54.17 [id number] Matty Niño MD PAIN OFFICE [address] [place] [address] 10/03/2018 08:45:57 10/05/2018 10:22:00 Spinal stenosis of lumbar region 83145396 M48.062 Lumbosacra l spondylosis without myelopathy 34527457 M47.817 Displaceme 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 37668480 M51.26 Lumbosacra l radiculitis 38301734 M54.17 [id number] Matty Niño MD PAIN OFFICE [address] [place] [address] 12/08/2018 10:36:17 12/11/2018 09:55:55 Spinal stenosis of lumbar region 99751194 M48.062 Displaceme 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 44909663 M51.26 Lumbosacra l radiculitis 96687305 M54.17 [id number] Matty Niño MD PAIN OFFICE [address] [place] [address] 12/12/2018 10:26:00 12/12/2018 11:11:43 Spinal stenosis of lumbar region 01845947 M48.062 Displaceme 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 30680746 M51.26 Lumbosacra l radiculitis 54960134 M54.17 [id number] Matty Niño MD PAIN OFFICE [address] [place] [address] 04/03/2019 08:19:21 04/03/2019 11:05:44 Spinal stenosis of lumbar region 81352260 M48.062 Displaceme 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 25778260 M51.26 Lumbosacra l radiculitis 84625000 M54.17 [id number] Matty Niño MD [facility] [address] [place] [address] 07/10/2019 12:58:25 07/13/2019 12:01:38 Spinal stenosis of lumbar region 77229049 M48.062 Displaceme 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 87968385 M51.26 Lumbosacra l radiculitis 63833689 M54.17 [id number] Matty Niño MD [facility] [address] [place] [address] 10/09/2019 10:30:15 10/09/2019 16:29:08 Spinal stenosis of lumbar region 59241307 M48.062 Displaceme 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 29069795 M51.26 Lumbosacra l radiculitis 48458962 M54.17 [id number] Matty Niño MD PAIN OFFICE [address] [place] [address] 01/09/2020 09:59:49 01/09/2020 13:55:57 Spinal stenosis of lumbar region 61948795 M48.062 Displaceme 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 15806863 M51.26 Lumbosacra l radiculitis 70437663 M54.17 [id number] Matty Niño MD [facility] [address] [facility] [place] [address] 04/02/2020 10:03:01 04/02/2020 11:01:09 Spinal stenosis of lumbar region 41526364 M48.062 Displaceme 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 98315402 M51.26 Lumbosacra l radiculitis 58270180 M54.17 [id number] Matty Niño MD [facility] [address] [facility] [place] [address] 07/02/2020 09:59:55 07/02/2020 11:50:04 Spinal stenosis of lumbar region 26300894 M48.062 Displaceme 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 32832931 M51.26 Lumbosacra l radiculitis 45181474 M54.17 [id number] Matty Niño MD [facility] [address] [facility] [place] [address] 10/15/2020 09:58:01 10/15/2020 14:47:22 Spinal stenosis of lumbar region 25438661 M48.062 Displaceme 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 05878015 M51.26 Lumbosacra l radiculitis 26203966 M54.17 [id number] Matty Niño MD [facility] [address] [facility] [place] [address] 01/20/2021 09:59:18 01/20/2021 10:34:01 Spinal stenosis of lumbar region 09579018 M48.062 Displaceme 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 30648957 M51.26 Lumbosacra l radiculitis 36268594 M54.17 [id number] Matty Niño MD [facility] [address] [facility] [place] [address] 04/21/2021 10:25:17 04/21/2021 11:01:32 Spinal stenosis of lumbar region 40256703 M48.062 Displaceme 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 49050265 M51.26 Lumbosacra l radiculitis 25261460 M54.17 [id number] Matty Niño MD PAIN OFFICE [address] [facility] [place] [address] 08/11/2021 10:47:17 08/11/2021 13:14:26 Spinal stenosis of lumbar region 21794863 M48.062 Displaceme 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 49966752 M51.26 Lumbosacra l radiculitis 88307945 M54.17 [id number] Matty Niño MD PAIN OFFICE [address] [facility] [place] [address] 12/02/2021 10:55:34 12/02/2021 11:28:15 Spinal stenosis of lumbar region 65146958 M48.062 Displaceme 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 24098514 M51.26 Lumbosacra l radiculitis 09770736 M54.17 [id number] Matty Niño MD PAIN OFFICE [address] [place] [address] 03/31/2022 15:02:47 03/31/2022 15:32:03 Spinal stenosis of lumbar region 10928514 M48.062 Displaceme 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 69822242 M51.26 Lumbosacra l radiculitis 11025509 M54.17 [id number] Matty Niño MD [facility] [address] [facility] [place] [address] 09/01/2022 09:28:10 09/02/2022 15:05:41 Spinal stenosis of lumbar region 43509808 M48.062 Displaceme 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 54984624 M51.26 Lumbosacra l radiculitis 23273228 M54.17 [id number] Matty Niño MD PAIN OFFICE [address] [facility] [place] [address] 12/14/2022 10:21:39 12/14/2022 11:09:18 Spinal stenosis of lumbar region 39646606 M48.062 Displaceme 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 08594826 M51.26 Lumbosacra l radiculitis 67835524 M54.17 Right foot drop 79861128 01 96933 M21.371 [id number] Matty Niño MD PAIN OFFICE [address] [facility] [place] [address] 04/19/2023 08:49:17 04/19/2023 10:04:15 Spinal stenosis of lumbar region 67823897 M48.062 Displaceme 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 89339047 M51.26 Lumbosacra l radiculitis 08892349 M54.17 [id number] Matty Niño MD PAIN OFFICE [address] [facility] [place] [address] 07/20/2023 11:06:57 07/20/2023 14:25:47 Spinal stenosis of lumbar region 48041455 M48.062 Displaceme 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 87346190 M51.26 Lumbosacra l radiculitis 00294136 M54.17 [id number] Matty Niño MD PAIN OFFICE [address] [facility] [place] [address] 10/18/2023 09:16:56 10/18/2023 14:43:04 Spinal stenosis of lumbar region 76613116 M48.062 Displaceme 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 29446142 M51.26 Lumbosacra l radiculitis 97269833 M54.17 [id number] Matty Niño MD PAIN OFFICE [address] [facility] [place] [address] 11/29/2023 10:53:46 11/29/2023 11:30:52 Lumbosacral spondylosis without myelopathy [id number] M47.817 Displaceme 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 [id number] M51.26 [id number] Matty Niño MD PAIN OFFICE [address] [place] [address] 02/16/2024 13:29:09 02/16/2024 15:28:41 Spinal stenosis of lumbar region [id number] M48.062 Displaceme 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 16612507 M51.26 Lumbosacra l radiculitis 26637628 M54.17 [id number] Matty Niño MD PAIN OFFICE [address] [address] 04/03/2024 13:00:47 04/03/2024 16:39:17 Lumbosacral spondylosis without myelopathy 18559177 M47.817 Spinal nikos nosis of lumbar region 69698962 M48.062 Displaceme 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 25327608 M51.26 Lumbosacra l radiculitis 39749086 M54.17 [id number] Matty Niño MD PAIN OFFICE [address] [place] [address] 05/30/2024 10:39:12 05/30/2024 11:24:17 Spinal stenosis of lumbar region 22483008 M48.062 Displaceme 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 18320571 M51.26 Lumbosacra l radiculitis 69465789 M54.17 64013 Matty Niño MD PAIN OFFICE [address] [place] [address] 09/05/2024 09:24:15 09/05/2024 16:28:10 Spinal stenosis of lumbar region 84584365 M48.062 Lumbosacra l radiculitis 38744961 M54.17 Displaceme 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 35989032 M51.26 [id number] Matty Niño MD PAIN OFFICE [address] [facility] [place] [address] 12/05/2024 09:17:22 12/05/2024 15:40:37 Lumbosacral radiculitis 41281607 M54.17 Spinal nikos nosis of lumbar region 64850952 M48.062 Displaceme 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 01570578 M51.26 Health Concerns Section Related Observation LastModified by Organization Detai ls LastModified Time None Recorded Concern Status LastModified by Organization Details LastModified Time None Recorded Advance Directives Directive None Recorded Payers Encounter Date Sequence Insurance Name Policy Number Policy Hager Covered Member ID Hager Member ID Guarantor Name 02/16/2024 1 [employer] MED[employer] ADVANT[employer] PLAN (MEDICARE REPLACEMENT HMO) [id number] 01 Jaylene A A Mulligan [id number] Jaylene Mulligan 04/03/2024 1 [employer] MED[employer]VANTAGE PLAN (MEDICARE REPLACEMENT HMO) [id number] Jaylene A A Mulligan [id number] Jaylene Mulligan 05/30/2024 1 [employer]VANTAGE PLAN (MEDICARE REPLACEMENT HMO) [id number] 01 Jaylene A A Mulligan [id number] Jaylene Mulligan 09/05/2024 1 [employer]AGE PLAN (MEDICARE REPLACEMENT HMO) [id number] 01 Jaylene A A Mulligan [id number] Jaylene Mulligan 12/05/2024 1 [employer]AGE PLAN (MEDICARE REPLACEMENT HMO) [id number] 01 Jaylene A A Mulligan [id number] Jaylene Mulligan Notes Date Note Type Note Provider Name and Address Organization Details Recorded Time 02/16/2024 text/html She is here for a lumbar epidural steroid injection under fluoroscopic guidance.She is complaining of low back pain, right is greater than left Matty Niño MD [address] [facility] , [place] [address], [place], [address], [facility] - Pain Management 02/16/2024 16:09:08 04/03/2024 text/html She is here for a left lumbar radiofrequency ablation L4, L5 and S1 under fluoroscopic guidance Matty Niño MD [address] [facility] , [address], [place], [address], [place] [facility] 04/03/2024 16:42:39 05/30/2024 text/html She is here for a lumbar epidural steroid injection under fluoroscopic guidance. Matty Niño MD [address] [facility] [address], [place], [address], [place] [facility] 05/30/2024 15:17:12 09/05/2024 text/html She is here for a lumbar epidural steroid injection under fluoroscopic guidance. Matty Niño MD [address] [facility], [place], [address], [place] [facility] 09/06/2024 15:24:12 12/05/2024 text/html She is here for a lumbar epidural steroid injection under fluoroscopic guidance. Matty Niño MD [address] [facility], [place], [address], [place] [facility] 12/05/2024 15:45:59 OBGyn Episode No OBEpisode recorded.
== END 2025-01-03 10:36 | disposition home or self-care (01) ==
LOC: HO.HOS 09:42
PROVIDERS: PCP Internal Medicine; Visit Provider Orthopaedic Surgery
DX: M25.561 Pain in right knee (principal); Z96.651 Presence of right artificial knee joint
CPT/HCPCS: 99213; G2211

== ENCOUNTER → 2025-01-03 10:10 | Outpatient (BNV) | payer MEDICARE, SELFPAY | PROVIDERS: Visit Provider Nuclear Medicine | DX: M25.561 Pain in right knee (principal); Z96.651 Presence of right artificial knee joint | CPT/HCPCS: 73562 ==

== ENCOUNTER 2025-01-03 11:14 | Outpatient (REF) | payer MEDICARE, SELFPAY ==
--- NOTE | ~2025-01-03 | XR_ITS ---
CLINICAL HISTORY: M25.561 - Pain in right knee 3 view right knee Comparison: None Findings: Bones intact. No dislocations. Total knee replacement. No radiopaque foreign body. IMPRESSION: 1. No acute findings. Intact knee prosthesis. This document has been electronically signed by: Tra Olivo MD on 01/03/2025 15:20:01
--- OUTSIDE RECORDS SUMMARY | 2025-01-04 12:05 | XMS_ITS | Data Portability ---
Author Organization [facility] Pain Managem ALICIA gould PAIN OFFICE Address [address] [facility],[address] [address] Care Team Providers Care Medicinal Plant Picker Name Role Phone PHILLIP MCGRATH Primary Care [...] By Organization Details Last Modified Time 02/16/2024 [id number] She was advised against bed rest lasting longer than four days and to continue activities as tolerated. [email or web address] Not available 02/16/2024 14:54:11 04/03/2024 [id number] She was advised against bed rest lasting longer than four days and to continue activities as tolerated. [email or web address] Not available 04/03/2024 16:27:09 05/30/2024 [id number] She was advised against bed rest lasting longer than four days and to continue activities as tolerated. [email or web address] Not available 05/30/2024 11:18:50 09/05/2024 [id number] She was advised against bed rest lasting longer than four days and to continue activities as tolerated. [email or web address] Not available 09/05/2024 09:58:24 12/05/2024 [id number] She was advised against bed rest lasting longer than four days and to continue activities as tolerated. [email or web address] Not available 12/05/2024 09:46:45 Reason for Referral None Reported. Problems Name Problem SNOMED Code Status Onset Date Resolution Date Notes Provider Name and Address Organization Details Recorded Time Pseudoclaud ication syndrome Completed 06/14/2013 Matty lazo MD [address] , [address], [place], [address], [place] [facility] 6 15:48:13 Displacemen t of lumbar interverteb ral disc without myelopathy 76048072 Active Matty lazo MD [address] , [address], [place], [address], [place] [facility] 6 15:48:13 Knee pain Active Matty lazo MD [address] , [address], [place], [address], [place] [facility] 6 15:50:37 Osteoarthri tis of knee 567417915 Active Matty lazo MD [address] [facility] , [address], [facility] [place], [address], [place] [facility] 6 15:50:37 Lumbosacral radiculitis 55367654 Active Matty lazo MD [address] [facility] , [address], [facility] [place], [address], [place] [facility] 6 15:48:13 Spinal stenosis of lumbar region 32029929 Active Matty lazo MD [address] [facility] , [address], [facility] [place], [address], [place] [facility] 6 15:48:13 Lumbosacral spondylosis without myelopathy 22316059 Active Matty lazo MD [address] [facility] [address], [facility] [place], [address], [place] [facility] 6 15:48:13 Problem Notes None recorded. Procedures Surgical History Date Name Laterality Status Provider Name and Address Organization Details Recorded Time 12/06/19 25 Lumbar Epidural steroid injection under fluoroscopic guidance completed Matty Niño MD [address] [facility] , [address], [place], [address], [place] [facility] 12/05/2024 09:48:16 09/05/19 25 Lumbar Epidural steroid injection under fluoroscopic guidance completed Matty Niño MD [address] [facility] , [address], [place], [address], [place] [facility] 09/05/2024 09:59:19 05/30/20 24 Lumbar Epidural steroid injection under fluoroscopic guidance completed Matty Niño MD [address] [facility] , [address], [place], [address], [place] [facility] 05/30/2024 11:19:16 04/03/20 24 Radiofrequency of Lumbar/Sacral medial branches supplying the facets under fluoroscopic guidance completed Matty Niño MD [address] , [address], [place], [address], [place] [facility] 04/03/2024 16:23:27 02/16/20 24 Lumbar Epidural steroid injection under fluoroscopic guidance completed Matty Niño MD [address] , [address], [place], [address], [place] [facility] 02/16/2024 14:55:32 11/29/19 24 Fluoroscopic Guided Lumbar Facet Steroid Injections of levels completed Matty Niño MD [address] , [address], [place], [address], [place] [facility] 11/29/2023 11:22:56 10/18/19 24 Lumbar Epidural steroid injection under fluoroscopic guidance completed Matty Niño MD [address] [facility] , [address], [place], [address], [place] [facility] 10/18/2023 11:55:29 07/20/20 23 Lumbar Epidural steroid injection under fluoroscopic guidance completed Matty Niño MD [address] [facility] , [address], [place], [address], [place] [facility] 07/20/2023 11:40:05 04/19/20 23 Lumbar Epidural steroid injection under fluoroscopic guidance completed Matty Niño MD [address] [facility] , [address], [place], [address], [place] [facility] 04/19/2023 09:38:38 12/15/19 23 Lumbar Epidural steroid injection under fluoroscopic guidance completed Matty Niño MD [address] [facility] , [address], [place], [address], [place] [facility] 12/14/2022 10:59:59 09/01/19 23 Lumbar Epidural steroid injection under fluoroscopic guidance completed Matty Niño MD [address] , [address], [place], [address], [place] [facility] 09/02/2022 15:03:56 03/31/20 22 Lumbar Epidural steroid injection under fluoroscopic guidance completed Matty Niño MD [address] , [address], [place], [address], [place] [facility] 03/31/2022 15:27:19 12/03/19 22 Lumbar Epidural steroid injection under fluoroscopic guidance completed Matty Niño MD [address] , [address], [place], [address], [place] [facility] 12/02/2021 11:25:00 08/11/19 22 Lumbar Epidural steroid injection under fluoroscopic guidance completed Matty Niño MD [address] , [address], [place], [address], [place] [facility] 08/11/2021 11:20:15 04/21/20 21 Lumbar Epidural steroid injection under fluoroscopic guidance completed Matty Niño MD [address] , [address], [place], [address], [place] [facility] 04/21/2021 10:58:57 01/21/20 21 Lumbar Epidural steroid injection under fluoroscopic guidance completed Matty Niño MD [address] , [address], [place], [address], [place] [facility] 01/20/2021 10:30:55 10/16/19 21 Lumbar Epidural steroid injection under fluoroscopic guidance completed Matty Niño MD [address] , [address], [place], [address], [place] [facility] 10/15/2020 11:28:09 07/02/20 20 Lumbar Epidural steroid injection under fluoroscopic guidance completed Matty Niño MD [address] [facility] , [address], [place], [address], [place] [facility] 07/02/2020 11:26:17 04/02/20 20 Lumbar Epidural steroid injection under fluoroscopic guidance completed Matty Niño MD [address] [facility] , [address], [place], [address], [place] [facility] 04/02/2020 10:31:26 01/09/20 20 Lumbar Epidural steroid injection under fluoroscopic guidance completed Matty Niño MD [address] [facility] , [address], [place], [address], [place] [facility] 01/09/2020 13:44:21 10/09/19 20 Lumbar Epidural steroid injection under fluoroscopic guidance completed Matty Niño MD [address] , [address], [place], [address], [place] [facility] 10/09/2019 16:25:31 07/10/20 19 Lumbar Epidural steroid injection under fluoroscopic guidance completed Matty Niño MD [address] , [address], [place], [address], [place] [facility] 07/13/2019 11:09:18 04/03/20 19 Lumbar Epidural steroid injection under fluoroscopic guidance completed Matty Niño MD [address] , [address], [place], [address], [place] [facility] 04/03/2019 10:55:44 01/06/20 19 total knee replacement completed Matty Niño MD [address] [facility] , [address], [place], [address], [place] [facility] 04/03/2019 08:49:03 12/13/19 19 Lumbar Epidural steroid injection under fluoroscopic guidance completed Matty Niño MD [address] , [address], [place], [address], [place] [facility] 12/12/2018 11:08:36 10/04/19 19 Fluoroscopic Guided Lumbar Facet Steroid Injections of levels completed Matty Niño MD [address] [facility] , [address], [place], [address], [place] [facility] 10/05/2018 10:15:50 07/11/20 18 Fluoroscopic Guided Lumbar Facet Steroid Injections of levels completed Matty Niño MD [address] , [address], [place], [address], [place] [facility] 07/13/2018 11:56:01 06/05/20 18 Intra-articular Knee Steroid Injection completed Matty Niño MD [address] , [address], [place], [address], [place] [facility] 06/05/2018 09:25:01 05/17/20 18 Fluoroscopic Guided Lumbar Facet Steroid Injections of levels completed Matty Niño MD [address] , [address], [place], [address], [place] [facility] 05/17/2018 15:45:50 02/28/20 18 Intra-articular Knee Steroid Injection completed Matty Niño MD [address] , [address], [place], [address], [place] [facility] 02/27/2018 10:33:32 02/15/20 18 Fluoroscopic Guided Lumbar Facet Steroid Injections of levels completed Matty Niño MD [address] , [address], [place], [address], [place] [facility] 02/15/2018 09:24:04 11/02/19 18 Fluoroscopic Guided Lumbar Facet Steroid Injections of levels completed Matty Niño MD [address] , [address], [place], [address], [place] [facility] 11/07/2017 10:14:22 10/14/19 18 Intra-articular Knee Steroid Injection completed Matty Niño MD [address] , [address], [place], [address], [place] [facility] 10/13/2017 10:02:51 07/12/20 17 Fluoroscopic Guided Lumbar Facet Steroid Injections of levels completed Matty Niño MD [address] , [address], [place], [address], [place] [facility] 07/14/2017 11:15:11 02/08/20 17 Intra-articular Knee Steroid Injection completed Matty Niño MD [address] , [address], [place], [address], [place] [facility] 02/08/2017 18:52:47 10/14/19 17 Fluoroscopic Guided Lumbar Facet Steroid Injections of levels completed Matty Niño MD [address] , [address], [place], [address], [place] [facility] 10/13/2016 15:24:56 07/19/20 16 Intra-articular Knee Steroid Injection completed Matty Niño MD [address] , [address], [place], [address], [place] [facility] 07/28/2016 10:25:44 07/07/20 16 Fluoroscopic Guided Lumbar Facet Steroid Injections of levels completed Matty Niño MD [address] , [address], [place], [address], [place] [facility] 07/07/2016 10:00:35 06/02/20 16 Fluoroscopic Guided Lumbar Facet Steroid Injections of levels completed Matty Niño MD [address] , [address], [place], [address], [place] [facility] 06/03/2016 15:18:15 01/01/20 16 Intra-articular Knee Steroid Injection completed Matty Niño MD [address] , [address], [place], [address], [place] [facility] 01/01/2016 15:50:37 12/25/19 16 Intra-articular Knee Steroid Injection completed Matty Niño MD [address] , [address], [place], [address], [place] [facility] 12/25/2015 09:53:14 12/10/19 16 Fluoroscopic Guided Lumbar Facet Steroid Injections of levels completed Matty Niño MD [address] , [address], [place], [address], [place] [facility] 12/10/2015 09:54:26 05/06/20 15 Intra-articular Knee Steroid Injection completed Matty Niño MD [address] , [address], [place], [address], [place] [facility] 05/06/2015 10:06:19 04/29/20 15 Intra-articular Knee Steroid Injection completed Matty Niño MD [address] , [address], [place], [address], [place] [facility] 04/29/2015 09:48:50 04/14/20 15 Radiofrequency of Lumbar/Sacral medial branches supplying the facets under fluoroscopic guidance completed Matty Niño MD [address] , [address], [place], [address], [place] [facility] 04/16/2015 15:56:21 12/10/19 15 Fluoroscopic Guided Lumbar Facet Steroid Injections of levels completed Matty Niño MD [address] , [address], [place], [address], [place] [facility] 12/09/2014 14:17:43 05/20/20 14 Fluoroscopic Guided Lumbar Facet Steroid Injections of levels completed Matty Niño MD [address] , [address], [place], [address], [place] [facility] 05/20/2014 14:51:02 09/10/19 14 Fluoroscopic Guided Lumbar Facet Steroid Injections of levels completed Matty Niño MD [address] , [address], [place], [address], [place] [facility] 09/11/2013 11:49:32 06/12/20 13 Lumbar Epidural steroid injection under fluoroscopic guidance completed Matty Niño MD [address] , [address], [place], [address], [place] [facility] 06/14/2013 10:25:02 01/16/20 13 Lumbar Epidural steroid injection under fluoroscopic guidance completed Matty Niño MD [address] [facility] , [address], [place], [address], [place] [facility] 01/16/2013 13:31:17 12/12/19 13 Lumbar Epidural steroid injection under fluoroscopic guidance completed Matty Niño MD [address] , [address], [place], [address], [place] [facility] 12/12/2012 13:12:25 Other completed Jaylene Velasco [place] - [facility] 10/13/2017 09:33:19 Arthroscopic Surgery completed Matty Niño MD [address] , [address], [place], [address], [place] [facility] 11/22/2012 11:31:12 Tonsillectomy completed Matty Niño MD [address] , [address], [place], [address], [place] [facility] 11/22/2012 09:49:36 Breast Surgery completed Matty Niño MD [address] [facility] , [address], [place], [address], [place] [facility] 11/22/2012 09:49:36 Tubal Ligation completed Matty Niño MD [address] [facility] , [address], [place], [address], [place] [facility] 11/22/2012 11:31:39 Other completed Matty Niño MD [address] , [address], [place], [address], [place] [facility] 11/22/2012 11:31:39 [...] n itching Not available Not available 11/22/2012 [id number] SNOMED Matty lazo MD [address] [facility] , [address], [place], [address], [place] - [facility] 3 09:56:33 Medications Name Sig Start Date Stop Date Status Note LastModified by Organization Details LastModified Time freestyle mis lancets active Not Available Not Available Not Available freestyle lite blood glucose monito ring system [...] Available Not Available Not Available Fluzone High-Dose 6496-4063 (PF) 180 mcg/0.5 mL intramusc ular syringe TO BE ADMINIST ERED BY [employer] [facility] FOR IMMUNIZA TION 05/17 completed Not Available Not Available Not Available Fluzone High-Dose 2018- (PF) 180 mcg/0.5 mL intramusc ular syringe TO BE ADMINIST ERED BY [employer] FOR IMMUNIZA TION 01/20 completed Not Available [...] mm[Hg] 58 mm[Hg] Matty lazo MD [address] [facility] , [address], [facility] [place], [address], [place] [facility] 5 [...] % 144 mm[Hg] 62 mm[Hg] Nayeli Cutler PA - [facility] 4 13:07:25 Date Recorded Body height Heart rate Oxygen saturation Oxygen saturation in Arterial blood by Pulse oximetry Systolic blood pressure Diastolic blood pressure Provider Name and Address Organization Details Last Updated DateTime 4 157.48 cm 56 /min 97 % 97 % 167 mm[Hg] 51 mm[Hg] Goldie Higgins PA - [facility] 4 10:50:12 Social History [...] Of Your Most Recent Tobacco Screening? 12/12/2018 [id number] Information not available 05/16/2020 Sex: Unknown Functional Status Question Answer Note LastModified by Organizat ion Details LastModified Time What is your level of alcohol consumption? 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 Other [employer]IL[employer] Information not available 12/28/2024 Mental Status None recorded. Family History Relationship Description Onset Age of this Age Resolved Age Notes LastModified by Organization Details LastModified Time Mother Malignant neoplastic disease breast (previ ously record ed as Cancer ) [email or web address] Not available 01/01/2016 15:48:27 Medical History Condition Response Depression Y Arthritis Y Cancer Y High Cholesterol Y Hyperlipidemia Y Hypertension Y Gynecological HistoryNo gynecological history recorded. Obstetrics History GPAL:G 0 P 0 0 0 0 Immunizations Vaccine Type Date Status Note Provider Nam e and Address Organization Details Recorded Time influenza, unspecified formulation 04/01/2023 completed Goldie hilton [facility] 07/20/2023 11:18:21 Past Encounters Encounter ID Performer Location Encounter Start Date Encounter Closed Date Diagnosis/Indication Diagnosis SNOMED-CT Code Diagnosis ICD10 Code Diagnosis Note [id number] Matty Niño MD PAIN OFFICE [address] [place] [address] 11/22/2012 08:53:26 11/22/2012 11:38:07 [id number] Matty Niño MD PAIN OFFICE [address] [place] [address] 12/11/2012 12:51:24 12/11/2012 15:51:10 [id number] Matty Niño MD PAIN OFFICE [address] [place] [address] 2013 08:58:20 2013 09:24:55 [id number] Matty Niño MD PAIN OFFICE [address] [facility] [place] [address] 01/15/2013 10:25:52 01/15/2013 16:13:49 [id number] Matty Niño MD [facility] PAIN OFFICE [address] [facility] [place] [address] 03/28/2013 09:57:41 03/29/2013 08:41:10 [id number] Matty Niño MD PAIN OFFICE [address] [facility] [place] [address] 06/12/2013 11:30:16 06/12/2013 15:44:20 Displaceme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 20020507 Lumbosacra l radiculitis 67170669 Spinal nikos nosis of lumbar region 75560567 [id number] Matty Niño MD SV PAIN OFFICE [address] [place] [address] 09/10/2013 12:46:37 09/11/2013 11:50:14 Spinal stenosis of lumbar region 47189668 Displaceme 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 33174626 Lumbosacra l radiculitis 00057742 Lumbosacra l spondylosis without myelopathy 56260744 [id number] Matty Niño MD PAIN OFFICE [address] [facility] [place] [address] 10/30/2013 09:59:44 11/01/2013 15:38:06 Spinal stenosis of lumbar region 23229661 Lumbosacra l spondylosis without myelopathy 33700233 Displaceme 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 85627151 Lumbosacra l radiculitis 24593734 [id number] Matty Niño MD PAIN OFFICE [address] [facility] [place] [address] 05/20/2014 12:52:48 05/21/2014 10:32:29 Spinal stenosis of lumbar region 49374969 Lumbosacra l spondylosis without myelopathy 36792855 Displaceme 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 23638701 Lumbosacra l radiculitis 19543149 [id number] Matty Niño MD PAIN OFFICE [address] [facility] [place] [address] 12/09/2014 13:17:46 12/10/2014 11:29:06 Spinal stenosis of lumbar region 18566598 Lumbosacra l spondylosis without myelopathy 47759358 Displaceme 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 76784919 Lumbosacra l radiculitis 97970835 [id number] Matty Niño MD PAIN OFFICE [address] [facility] [place] [address] 01/21/2015 09:33:08 01/21/2015 10:33:33 Spinal stenosis of lumbar region 06293620 Lumbosacra l spondylosis without myelopathy 29092625 Displaceme 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 11765047 Lumbosacra l radiculitis 57803019 [id number] Matty Niño MD PAIN OFFICE [address] [facility] [place] [address] 04/14/2015 10:47:24 04/15/2015 10:52:27 Spinal stenosis of lumbar region 28271432 Lumbosacra l spondylosis without myelopathy 44967045 Displaceme 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 46073291 Lumbosacra l radiculitis 82881830 [id number] Matty Niño MD PAIN OFFICE [address] [facility] [place] [address] 04/29/2015 09:00:58 04/29/2015 09:49:25 Knee pain 61633623 Osteoarthr itis of knee 609162964 [id number] Matty Niño MD [facility] PAIN OFFICE [address] [facility] [place] [address] 05/06/2015 09:29:34 05/06/2015 10:06:58 Knee pain 71336903 M25.561 M25.562 Osteoarthr itis of knee 549411660 M17.0 [id number] Matty Niño MD PAIN OFFICE [address] [facility] [place] [address] 12/10/2015 08:29:54 12/10/2015 09:57:07 Knee pain 91971561 M25.561 M25.562 Osteoarthr itis of knee 371042269 M17.0 Lumbosacra l spondylosis without myelopathy 20023410 M47.817 Displaceme 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 91005619 M51.26 Spinal nikos nosis of lumbar region 23949168 M48.06 Lumbosacra l radiculitis 34821156 M54.17 [id number] Matty Niño MD PAIN OFFICE [address] [facility] [place] [address] 12/25/2015 08:58:52 12/25/2015 10:28:10 Osteoarthritis of knee 276215144 M17.9 Knee pain 86545473 M25.5 61 M25.562 [id number] Matty Niño MD PAIN OFFICE [address] [facility] [place] [address] 01/01/2016 10:08:52 01/01/2016 15:51:12 Knee pain 24739167 M25.561 M25.562 Osteoarthr itis of knee 308116717 M17.9 M17.0 [id number] Matty Niño MD [facility] PAIN OFFICE [address] [place] [address] 06/02/2016 13:17:20 06/03/2016 15:23:48 Spinal stenosis of lumbar region 10916347 M48.06 Lumbosacra l spondylosis without myelopathy 91862638 M47.817 Displaceme 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 40522642 M51.26 Lumbosacra l radiculitis 93792641 M54.17 [id number] Matty Niño MD PAIN OFFICE [address] [place] [address] 07/07/2016 09:30:29 07/07/2016 13:22:46 Lumbosacral spondylosis without myelopathy 64312614 M47.817 Spinal nikos nosis of lumbar region 58879485 M48.06 Displaceme 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 75442819 M51.26 Lumbosacra l radiculitis 02509578 M54.17 [id number] Matty Niño MD PAIN OFFICE [address] [place] [address] 07/19/2016 14:30:19 07/28/2016 11:06:35 Osteoarthritis of knee 600894659 M17.9 Knee pain 79428010 M25.5 61 M25.562 [id number] Matty Niño MD PAIN OFFICE [address] [place] [address] 10/13/2016 08:57:34 10/13/2016 15:39:11 Spinal stenosis of lumbar region 77676577 M48.06 Lumbosacra l spondylosis without myelopathy 57628757 M47.817 Displaceme 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 11238777 M51.26 Lumbosacra l radiculitis 11166236 M54.17 [id number] Matty Niño MD PAIN OFFICE [address] [place] [place] [address] 02/07/2017 15:27:11 02/09/2017 11:10:45 Osteoarthritis of knee 109999275 M17.9 Knee pain 93549484 M25.5 61 M25.562 [id number] Matty Niño MD [facility] PAIN OFFICE [address] [facility] [place] [address] 07/12/2017 10:28:51 07/14/2017 11:20:56 Spinal stenosis of lumbar region 26920752 M48.062 Lumbosacra l spondylosis without myelopathy 05169031 M47.817 Displaceme 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 96697851 M51.26 Lumbosacra l radiculitis 40930186 M54.17 [id number] Matty Niño MD [facility] PAIN OFFICE [address] [place] [address] 10/13/2017 08:59:24 10/13/2017 10:10:53 Osteoarthritis of knee 313890751 M17.9 Knee pain 97800675 M25.5 61 M25.562 [id number] Matyt Niño MD [facility] [address] [place] [address] 11/01/2017 08:50:41 11/01/2017 09:52:01 Spinal stenosis of lumbar region 69926225 M48.062 Lumbosacra l spondylosis without myelopathy 43518937 M47.817 Displaceme 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 97673813 M51.26 Lumbosacra l radiculitis 88468823 M54.17 [id number] Matty Niño MD [facility] [address] [place] [address] 02/14/2018 11:00:06 02/15/2018 09:51:01 Spinal stenosis of lumbar region 10846487 M48.062 Lumbosacra l spondylosis without myelopathy 72938613 M47.817 Displaceme 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 98266869 M51.26 Lumbosacra l radiculitis 19821092 M54.17 [id number] Matty Niño MD [facility] [address] [place] [address] 02/27/2018 09:23:10 02/27/2018 10:35:42 Osteoarthritis of knee 995647380 M17.9 Knee pain 32413056 M25.5 61 M25.562 27989 Matty Niño MD PAIN OFFICE [address] [place] [address] 05/17/2018 08:26:43 05/17/2018 15:49:45 Spinal stenosis of lumbar region 70219302 M48.062 Lumbosacra l spondylosis without myelopathy 77331267 M47.817 Displaceme 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 66274410 M51.26 Lumbosacra l radiculitis 70574171 M54.17 73469 Matty Niño MD PAIN OFFICE [address] [place] [address] 06/05/2018 08:24:56 06/05/2018 09:27:35 Osteoarthritis of knee 315818910 M17.9 Knee pain 65995741 M25.5 61 M25.562 29771 Matty Niño MD PAIN OFFICE [address] [place] [address] 07/11/2018 08:58:55 07/13/2018 15:49:54 Spinal stenosis of lumbar region 02310077 M48.062 Lumbosacra l spondylosis without myelopathy 82029597 M47.817 Displaceme 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 34380492 M51.26 Lumbosacra l radiculitis 33805306 M54.17 95254 Matty Niño MD PAIN OFFICE [address] [place] [address] 10/03/2018 08:45:57 10/05/2018 10:22:00 Spinal stenosis of lumbar region 69258253 M48.062 Lumbosacra l spondylosis without myelopathy 88348259 M47.817 Displaceme 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 53066842 M51.26 Lumbosacra l radiculitis 62583483 M54.17 85608 Matty Niño MD PAIN OFFICE [address] [place] [address] 12/08/2018 10:36:17 12/11/2018 09:55:55 Spinal stenosis of lumbar region 51798365 M48.062 Displaceme 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 03406529 M51.26 Lumbosacra l radiculitis 59198118 M54.17 84291 Matty Niño MD PAIN OFFICE [address] [place] [address] 12/12/2018 10:26:00 12/12/2018 11:11:43 Spinal stenosis of lumbar region 53882553 M48.062 Displaceme 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 28353901 M51.26 Lumbosacra l radiculitis 23087007 M54.17 45679 Matty Niño MD PAIN OFFICE [address] [place] [address] 04/03/2019 08:19:21 04/03/2019 11:05:44 Spinal stenosis of lumbar region 69108221 M48.062 Displaceme 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 53877109 M51.26 Lumbosacra l radiculitis 22297263 M54.17 53564 Matty Niño MD [facility] [address] [place] [address] 07/10/2019 12:58:25 07/13/2019 12:01:38 Spinal stenosis of lumbar region 71177809 M48.062 Displaceme 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 84204796 M51.26 Lumbosacra l radiculitis 36401364 M54.17 75588 Matty Niño MD [facility] [address] [place] [address] 10/09/2019 10:30:15 10/09/2019 16:29:08 Spinal stenosis of lumbar region 42190942 M48.062 Displaceme 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 79653748 M51.26 Lumbosacra l radiculitis 42030561 M54.17 74020 Matty Niño MD PAIN OFFICE [address] [place] [address] 01/09/2020 09:59:49 01/09/2020 13:55:57 Spinal stenosis of lumbar region 89535901 M48.062 Displaceme 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 77859712 M51.26 Lumbosacra l radiculitis 51548052 M54.17 78643 Matty Niño MD [facility] [address] [facility] [place] [address] 04/02/2020 10:03:01 04/02/2020 11:01:09 Spinal stenosis of lumbar region 16902635 M48.062 Displaceme 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 33481942 M51.26 Lumbosacra l radiculitis 88551099 M54.17 [id number] Matty Niño MD [facility] [address] [facility] [place] [address] 07/02/2020 09:59:55 07/02/2020 11:50:04 Spinal stenosis of lumbar region 28634194 M48.062 Displaceme 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 22657613 M51.26 Lumbosacra l radiculitis 12950513 M54.17 [id number] Matty Niño MD [facility] [address] [facility] [place] [address] 10/15/2020 09:58:01 10/15/2020 14:47:22 Spinal stenosis of lumbar region 41879005 M48.062 Displaceme 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 59180620 M51.26 Lumbosacra l radiculitis 09578072 M54.17 47584 Matty Niño MD [facility] [address] [facility] [place] [address] 01/20/2021 09:59:18 01/20/2021 10:34:01 Spinal stenosis of lumbar region 50837707 M48.062 Displaceme 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 77318691 M51.26 Lumbosacra l radiculitis 40528273 M54.17 39669 Matty Niño MD [facility] [address] [facility] [place] [address] 04/21/2021 10:25:17 04/21/2021 11:01:32 Spinal stenosis of lumbar region 90755043 M48.062 Displaceme 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 10910267 M51.26 Lumbosacra l radiculitis 19453360 M54.17 53418 Matty Niño MD PAIN OFFICE [address] [facility] [place] [address] 08/11/2021 10:47:17 08/11/2021 13:14:26 Spinal stenosis of lumbar region 34879426 M48.062 Displaceme 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 03360280 M51.26 Lumbosacra l radiculitis 34988090 M54.17 62102 Matty Niño MD PAIN OFFICE [address] [facility] [place] [address] 12/02/2021 10:55:34 12/02/2021 11:28:15 Spinal stenosis of lumbar region 68384812 M48.062 Displaceme 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 15013852 M51.26 Lumbosacra l radiculitis 08581789 M54.17 85961 Matty Niño MD PAIN OFFICE [address] [place] [address] 03/31/2022 15:02:47 03/31/2022 15:32:03 Spinal stenosis of lumbar region 75414191 M48.062 Displaceme 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 63137796 M51.26 Lumbosacra l radiculitis 80284890 M54.17 82123 Matty Niño MD [facility] [address] [facility] [place] [address] 09/01/2022 09:28:10 09/02/2022 15:05:41 Spinal stenosis of lumbar region 30256285 M48.062 Displaceme 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 01821761 M51.26 Lumbosacra l radiculitis 71028980 M54.17 59752 Matty Niño MD PAIN OFFICE [address] [facility] [place] [place] [address] 12/14/2022 10:21:39 12/14/2022 11:09:18 Spinal stenosis of lumbar region 82859919 M48.062 Displaceme 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 72065542 M51.26 Lumbosacra l radiculitis 29901501 M54.17 Right foot drop 67305605 01 12913 M21.371 34355 Matty Niño MD PAIN OFFICE [address] [facility] [place] [address] 04/19/2023 08:49:17 04/19/2023 10:04:15 Spinal stenosis of lumbar region 85411926 M48.062 Displaceme 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 91413954 M51.26 Lumbosacra l radiculitis 13436184 M54.17 36338 Matty Niño MD PAIN OFFICE [address] [facility] [place] [address] 07/20/2023 11:06:57 07/20/2023 14:25:47 Spinal stenosis of lumbar region 19368812 M48.062 Displaceme 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 84406106 M51.26 Lumbosacra l radiculitis 86793314 M54.17 [id number] Matty Niño MD PAIN OFFICE [address] [facility] [place] [address] 10/18/2023 09:16:56 10/18/2023 14:43:04 Spinal stenosis of lumbar region 81843138 M48.062 Displaceme 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 60938658 M51.26 Lumbosacra l radiculitis 01495226 M54.17 13008 Matty Niño MD PAIN OFFICE [address] [facility] [place] [address] 11/29/2023 10:53:46 11/29/2023 11:30:52 Lumbosacral spondylosis without myelopathy 27839639 M47.817 Displaceme 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 56410607 M51.26 13769 Matty Niño MD PAIN OFFICE [address] [place] [address] 02/16/2024 13:29:09 02/16/2024 15:28:41 Spinal stenosis of lumbar region 17500967 M48.062 Displaceme 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 27445664 M51.26 Lumbosacra l radiculitis 00729712 M54.17 04866 Matty Niño MD PAIN OFFICE [address] [address] 04/03/2024 13:00:47 04/03/2024 16:39:17 Lumbosacral spondylosis without myelopathy 25531434 M47.817 Spinal nikos nosis of lumbar region 20584706 M48.062 Displaceme 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 65261998 M51.26 Lumbosacra l radiculitis 72693889 M54.17 40817 Matty Niño MD PAIN OFFICE [address] [place] [address] 05/30/2024 10:39:12 05/30/2024 11:24:17 Spinal stenosis of lumbar region 97867757 M48.062 Displaceme 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 85394927 M51.26 Lumbosacra l radiculitis 33882618 M54.17 35768 Matty Niño MD PAIN OFFICE [address] [place] [address] 09/05/2024 09:24:15 09/05/2024 16:28:10 Spinal stenosis of lumbar region 57518642 M48.062 Lumbosacra l radiculitis 05327747 M54.17 Displaceme 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 47565772 M51.26 10372 Matty Niño MD PAIN OFFICE [address] [facility] [place] [address] 12/05/2024 09:17:22 12/05/2024 15:40:37 Lumbosacral radiculitis 66877948 M54.17 Spinal nikos nosis of lumbar region 83757398 M48.062 Displaceme 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 46651091 M51.26 Health Concerns Section Related Observation LastModified by Organization Detai ls LastModified Time None Recorded Concern Status LastModified by Organization Details LastModified Time None Recorded Advance Directives Directive None Recorded Payers Encounter Date Sequence Insurance Name Policy Number Policy Hager Covered Member ID Hager Member ID Guarantor Name 02/16/2024 1 [employer] MED[employer] ADV[employer] PLAN (MEDICARE REPLACEMENT HMO) [id number] 01 Jaylene A A Mulligan [id number] Jaylene Mulligan 04/03/2024 1 [employer] MED[employer]AGE PLAN (MEDICARE REPLACEMENT HMO) [id number] 01 Jaylene A A Mulligan [id number] Jaylene Mulligan 05/30/2024 1 [employer]AGE PLAN (MEDICARE REPLACEMENT HMO) [id number] 01 Jaylene A A Mulligan [id number] Jaylene Mulligan 09/05/2024 1 [employer] MED[employer]AGE PLAN (MEDICARE REPLACEMENT HMO) [id number] 01 Jaylene A A Mulligan [id number] Jaylene Mulligan 12/05/2024 1 [employer] PLAN (MEDICARE REPLACEMENT HMO) [id number] 01 Jaylene A A Mulligan [id number] Jaylene Mulligan Notes Date Note Type Note Provider Name and Address Organization Details Recorded Time 02/16/2024 text/html She is here for a lumbar epidural steroid injection under fluoroscopic guidance.She is complaining of low back pain, right is greater than left Matty Niño MD [address] [facility] , [place] [address], [place], [address], [facility] - Pain Management 02/16/2024 16:09:08 04/03/2024 text/html She is here for a left lumbar radiofrequency ablation L4, L5 and S1 under fluoroscopic guidance Matty Niño MD [address] [facility] , [address], [place], [address], [place] - [facility] 04/03/2024 16:42:39 05/30/2024 text/html She is here for a lumbar epidural steroid injection under fluoroscopic guidance. Matty Niño MD [address] [facility] [address], [place], [address], [place] - [facility] 05/30/2024 15:17:12 09/05/2024 text/html She is here for a lumbar epidural steroid injection under fluoroscopic guidance. Matty Niño MD [address] [facility] [address], [place], [address], [place] - [facility] 09/06/2024 15:24:12 12/05/2024 text/html She is here for a lumbar epidural steroid injection under fluoroscopic guidance. Matty Niño MD [address] [facility] [address], [place], [address], [place] - [facility] 12/05/2024 15:45:59 OBGyn Episode No OBEpisode recorded.
== END 2025-01-03 11:15 | disposition home or self-care (01) ==
LOC: HO.HOSX 11:14
PROVIDERS: Visit Provider Orthopaedic Surgery
DX: M25.561 Pain in right knee (principal)
CPT/HCPCS: 73562; 99212

== ENCOUNTER 2025-03-20 10:40 | Outpatient (AMB) | payer MEDICARE, SELFPAY ==
--- NOTE | 2025-03-20 10:53 | HO.SPINEOV ---
Vital Signs 03/20/25 10:57 Height 5 ft 1 in Weight 130 lb BMI 24.6 Intake Visit Reasons: LBP Intake Note: Mrs. Conde is here today c/o low back pain that radiates to the right leg and groin on ocassion. Training Professional Required: No Allergies Sulfa (Sulfonamide Antibiotics) Allergy (Intermediate, Verified 03/20/25 10:57) ITCHING Physical Exam Vital Signs: BMI result Body Mass Index 24.6 Assessment & Plan Assessment & Plan (1) Spondylolisthesis at L4-L5 level: Code(s): M43.16 - Spondylolisthesis, lumbar region Category: Medical Plan Dear Dr. Niño, Thank you for referring Jaylene to our office today. She is a pleasant 80-year-old female comes in today for evaluation of severe axial low back pain. She reports this has been ongoing for about 10 years, and denies any known inciting incident. She reports her pain has significantly worsened over the course of the last 6 months or so. Previously, she was able to mitigate her pain with injections, and reports good relief from injections for about 6 years. Unfortunately her last round of injections only lasted for about 1 month until her pain returned. When describing the pain she runs her hands across the small of her low back in an axial fashion. She does report that she has occasionally had cramping in her anterior thigh on the right side, however this seems to more recently have resolved. Her pain primarily occurs with positional changes and walking. She states that walking any distance will cause her fairly significant low back pain. This has now progressed to the point where she can not complete her grocery shopping even when leaning over a shopping cart (previously she could utilize the cart to get her shopping done). She is unable to go out to the store and go shopping for pleasure. She has difficulties completing hooker up and tasks. She feels overall that her activities of daily living at become extremely restricted as a result of her pain. To function on a daily basis she needs to take 4 Advil in the morning, and 4 Advil before bed. She did recently attempt physical therapy however had to stopped going because it only worsened her pain. She rates her pain as a 10/10 when attempting to ambulate or change positions. She comes in today hoping to find a surgical solution for her pain, as conservative measures have stopped working. PMH: Hypertension, type 2 diabetes (last A1C reported at 6.7), hyperlipidemia, GERD, heart murmur, Right TKA, salpingectomy, tonsillectomy, tubal ligation, dilation and curettage h/o breast biopsy, history of lobectomy of lung. Social hx: The patient does not smoke, reports no substance use. Medications: See Attentive.ly list Allergies: Sulfa Physical exam: The patient has about 4/5 strength with bilateral iliopsoas testing. The rest of her strength in the upper and lower extremities is 5/5. She ambulates slowly, but uses no assistive devices. She rises from a seated position with the assistance of a chair. She is able to get onto the examination table without much issue. Her gait is nonantalgic and non spastic. (-) Miller's, (-) clonus, (-) bilateral straight leg raise. Imaging review: MRI of the lumbar spine completed at [facility] shows grade 1-2 spondylolisthesis at L4-5 (better assessed on X-ray imaging) with severe central canal and bilateral foraminal stenosis. There is also fairly significant disc degeneration of L5-S1. Impression: Jaylene is a pleasant 80-year-old female comes in today for evaluation of severe low back pain that has been ongoing for the past 10 years. She has attempted several forms of conservative measures without significant relief of her pain symptoms. Most recently the injections that she was getting into her lumbar spine are no longer providing her with desired relief. Her clinical picture is most consistent with spinal stenosis and neurogenic claudication secondary to the spondylolisthesis seen at L4-5. We discussed the continuum of treatment options, and the patient reports that she would prefer to have this corrected via surgery. We discussed risks/benefits of surgery given her age, however she would like to proceed. Before we begin making surgical recommendations, I would like to send the patient for a set of dynamic lumbar spine x-rays to better evaluate the listhesis seen at L4-5 which I suspect worsens with standing. After that would likely obtain a CT scan of the lumbar spine to evaluate for osteophyte growth and also evaluate for bone quality. Once these are complete I will review her case with the attending neurosurgeon Dr. Vieyra. Thank you for allowing us to care for your patient. The total time spent with this visit with this patient was 45 minutes reviewing history, physical exam, MRI imaging review, and implementation of treatment plan or further diagnostic testing Aubrey Vieyra MD,PhD [facility] Orders: Orders XR lumbar spine 4V min Today M54.50 - Low back pain, unspecified Coding Level of Care Code New Pt Level 4 (72890) Diagnoses Spondylolisthesis at L4-L5 level M43.16
[2025-03-20 10:57] VITALS: BMI 24.6
--- OUTSIDE RECORDS SUMMARY | 2025-03-20 11:59 | XMS_ITS | Clinical Summary ---
Author Organization [facility] Address [address] [place] [address] Care Team Providers Care Information Technology Administrator Name Role Phone James Ventura MD Primary Care Provider Unavail able Allergies Active Allergy Reactions Criticality Noted Date Comments Sulfa Antibiotics 10/26/2018 Medications Medication Sig Dispensed Refills Start Date End Date Status aspirin 81 MG chewable tablet Chew 81 mg by mouth daily. 0 Active atorvastatin (LIPITOR) tablet 80 mg Take 80 mg by mouth daily. 0 Active sertraline (ZOLOFT) 100 MG tablet Take 100 mg by mouth daily. 0 Active metoprolol tartrate (LOPRESSOR) 100 MG tablet Take by mouth 2 (two) times a day. 0 Active metFORMIN (GLUCOPHAGE) 850 MG tablet Take 850 mg by mouth 2 (two) times a day with meals. 0 Active hydroCHLOROthiazi de (HYDRODIURIL) tablet 25 mg Take 25 mg by mouth daily. 0 Active amLODIPine (NORVASC) tablet 5 mg Take 5 mg by mouth daily. 0 Active Budesonide-Formot gertrude Fumarate (SYMBICORT IN) Inhale into the lungs. 0 Active dilTIAZem (CARDIZEM LA) 360 MG 24 hr tablet Cardizem LA 360 mg tablet,extended release 0 Active cyclobenzaprine (FLEXERIL) 10 MG tablet cyclobenzaprine 10 mg tablet TAKE 1 TABLET BY MOUTH AT BEDTIME 0 Active amoxicillin (AMOXIL) 500 MG tablet Take 4 tabs 1 hour prior to dental appointment 20 tablet 3 01/19/2019 Active levoFLOXacin (LEVAQUIN) 500 MG tablet Take 1 tab daily for 10 days 10 tablet 0 02/19/2019 Active ibuprofen (ADVIL,MOTRIN) 200 MG tablet ibuprofen 200 mg tablet 4 tab daily 0 Active albuterol (PROAIR HFA) 108 (90 Base) MCG/ACT inhaler ProAir HFA 90 mcg/actuation aerosol inhaler INHALE 2 PUFF BY INHALATION ROUTE EVERY 4 TO 6 HOURS NEEDED 0 Active rOPINIRole (REQUIP) 0.25 MG tablet ropinirole 0.25 mg tablet TAKE 1 TABLET BY MOUTH EVERYDAY AT BEDTIME 0 Active amoxicillin (AMOXIL) 500 MG tablet amoxicillin 500 mg tablet TAKE 4 TABS 1 HOUR PRIOR TO DENTAL APPOINTMENT 0 Active metFORMIN (GLUCOPHAGE-XR) 750 MG 24 hr tablet metformin ER 750 mg tablet,extended release 24 hr TAKE 1 TABLET BY ORAL ROUTE EVERY DAY WITH THE EVENING MEAL 0 Active Donepezil HCl (ARICEPT PO) Aricept 0 Active meclizine (ANTIVERT) 25 MG tablet meclizine 25 mg tablet TAKE 1 TABLET BY MOUTH 3 TIMES A DAY NEEDED VERTIGO SYMPTOMS 0 Active aspirin 81 MG EC tablet daily. 0 Active memantine (NAMENDA) 10 MG tablet Take 10 mg by mouth 2 (two) times a day. 0 01/28/2022 Active omeprazole (PriLOSEC) 20 MG capsule omeprazole 20 mg capsule,delayed release TAKE 1 CAPSULE BY MOUTH EVERY DAY BEFORE A MEAL 0 Active Active Problems Problem Noted Date Diagnosed Date Depression 09/10/2022 Arthritis of knee, right 10/26/2018 Family History Medical History Relation Name Comments Cancer Brother Hypertension Brother Cancer Mother Hypertension Mother Cancer Sister Hypertension Sister Relation Name Status Comments Brother Mother Sister Social History Tobacco Use Types Packs/Day Years Used Date Smoking Tobacco: Never Assessed Sex and Gender Information Value Date Recorded Sex Assigned at Not on file Gender Identity Not on file Sexual Orientation Not on file Job Start Date Occupation Industry Not on file Not on file Not on file Last Filed Vital Signs Vital Sign Reading Time Taken Comments Blood Pressure 153/82 09/10/2022 1:21 PM EST Pulse - - Temperature - - Respiratory Rate - - Oxygen Saturation 98% 09/10/2022 1:21 PM EST Inhaled Oxygen Concentration - - Weight 73.5 kg (162 lb) 02/20/2019 9:57 AM EDT Height 157.5 cm (5' 2 ) 02/20/2019 9:57 AM EDT Body Mass Index 29.63 02/20/2019 9:57 AM EDT Plan of Treatment Health Maintenance Due Date Last Done Comments COVID-19 Vaccine (#1) 1943 Depression Screening 1955 Preventative Health Evaluation 1961 Shingrix-Zoster Vaccine (1 of 2) 1993 DTap / Tdap / Td (1 - Tdap) 03/23/2003 03/22/2003 Hepatitis B Vaccines (2 of 3 - 19+ 3-dose series) 04/17/2003 03/20/2003 Fall Risk Assessment 01/11/2008 Osteoporosis Screening (DEXA Scan) 01/11/2008 Pneumococcal Vaccine (2 of 2 - PCV) 03/05/2009 03/05/2008 RSV Adult > 60+ Yrs or Pregn ant (1 - 1-dose 75+ series) 2018 Influenza Vaccine (#1) 2025 05/01/2018 RSV Ped < 20 months Aged Out No longe r eligible based on patient's age to complete this topic Care Teams Information Technology Administrator Relationship Specialty Start Date End Date James Ventura MD PCP - General Internal Medicine 10/11/18
--- OUTSIDE RECORDS SUMMARY | 2025-03-20 11:59 | XMS_ITS | Patient Health Record ---
Author Organization [facility] Address [address] [place] [address] Care Team Providers Care Typesetting Machine Tender Name Role Phone James Ventura MD Primary Care Provider UnavailIgor Galvin Jr Unavailable [phone] Allergies Allergen (clinical drug ingredient) Drug/Non Drug Allergy documented on EMR Reaction Allergy Type Onset Date Status Sulfa Unknown Drug Allergy Active Reason For Referral No Information Medications Medication SIG (Take, Route, Frequency, Duration) Notes Start Date End Date Status metFORMIN HCl ER 750 MG 1 tablet with evening meal Orally twice a day Unknown amLODIPine Besylate 5 MG 1 tablet Orally Once a day for 30 day(s) Unknown Atorvastatin Calcium 80 MG 1 tablet Oral ly Once a day for 30 day(s) Unknown Paxil 20 MG 1 tablet in the morning Orally Once a day for 30 day(s) Active Toprol XL 100 MG 1 tablet Orally Once a day Unknown ProAir HFA 108 (90 Base) MCG/ACT 1 puff as needed Inhalation every 4 hrs as needed Unknown hydroCHLOROthiazide 25 MG Orally Once a day Unknown MiraLax (colon prep) 17 GM/SCOOP mixed with Gatorade or Crystal Light Orally begin at 5:00 p.m. the day before the procedure for 1 day 03/30/2023 Active Immunizations Vaccine Route Administration Date Status Comme nts Influenza Unknown 04/01/2019 Administered Influenza Unknown 03/30/2023 Refused Social History Tobacco Use: Social History Observation Description Date Details (start date - stop date) Never Smoker NA - NA Tobacco Use/Smoking Question Answer Notes Patient is a nonsmoker Problems Problem Type SNOMED Code ICD Code Onset Dates Problem Status W/U Status Risk Notes Problem 014018303 Colon cancer screening (Z12.11) Active confirmed Problem 941750022 Abnormal PET sca n of colon (R94.8) Active confirmed Problem 480576869665964 jail (current) use of oral hypoglycemic drugs (Z79.84) Active confirmed Problem Diverticulosis of colon (823861083) Diverticulosis of colon (K57.30) Active confirmed Problem [id number] jail curr ent use of diuretic (Z79.899) Active confirmed Plan Of Treatment Future Test Test Name Order Date COLONOSCOPY 05/15/2014 COLONOSCOPY 01/23/2020 COLONOSCOPY 03/30/2023 Insurance Providers Payer Name Payer Address Payer Phone Subscriber Number Group Number Insured Name Patient Relationship to Insured Coverage Start Date Coverage End Date [facility] [address] [place] [phone] [id number] Self - patient is the insured Medical (General) History Medical History History ICD Code colonoscopy 03/20, tubular adenomas x2, f ollowup optional based on age. hypertension Hyperlipidemia depression cervical polyps cervical stenosis for which she receives epidural steroid injections. 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
--- OUTSIDE RECORDS SUMMARY | 2025-03-20 11:59 | XMS_ITS | Clinical Summary ---
Author Organization [address] Address [address] [place] [id number] Phone Care Team Providers Care Transitions Manager Rn Name Role Phone James Ventura MD Primary Care Provider Encounters Date Type Department Care Team Description 03/03/2025 9:50 AM EDT - 03/03/2025 11:59 PM EDT Hospital Encounter [facility] MRI [address] [place] [address] Pain Discharge Disposition: Home or Self Care from Last 3 Months Surgical History Surgery Date Site/Laterality Comments LUNG LOBECTOMY PROCEDURE:LUNG LOBECTOMY DILATION AND CURETTAGE OF UTERUS PROCEDURE:DILATION AND CURETTAGE OF UTERUS BREAST FIBROADENOMA SURGERY PROCEDURE:BREAST FIBROADENOMA SURGERY JOINT REPLACEMENT PROCEDURE:JOINT REPLACEMENT Medical History Medical History Date Comments Cancer ([facility] V24, [facility] V28) DX:Cancer (HCC) Diabetes mellitus ([facility] V24, [facility] V28) DX:Diabetes mellitus (HCC) Hypertension DX:Hypertension Osteoporosis DX:Osteoporosis Family History Medical History Relation Name Comments Cancer Brother Hypertension Brother Cancer Mother Hypertension Mother Cancer Sister Hypertension Sister Relation Name Status Comments Brother Mother Sister Social History Tobacco Use Types Packs/Day Years Used Date Smoking Tobacco: Never Assessed Comments Unknown Sex and Gender Information Value Date Recorded Sex Assigned at Not on file Legal Sex Female 1:16 AM EST Gender Identity Not on file Sexual Orientation Not on file Obstetrics History Last Filed Vital Signs Vital Sign Reading Time Taken Comments Blood Pressure 153/82 09/10/2022 1:21 PM EST Pulse - - Temperature - - Respiratory Rate - - Oxygen Saturation - - Inhaled Oxygen Concentration - - Weight - - Height - - Body Mass Index - - Plan of Treatment Health Maintenance Due Date Last Done Comments Diabetes: Annual GFR (Glomerular Filtration Rate) 1943 Diabetes: Annual Foot Exam 1953 Diabetes: Annual Retina Eye Exam 1953 Hepatitis A Vaccines (1 of 2 - Risk 2-dose series) 1962 Zoster Vaccines (1 of 2) 1962 Hepatitis B Vaccines (2 of 3 - Risk 3-dose series) 04/17/2003 03/20/2003 DTaP,Tdap,and Td Vaccines (2 - Td or Tdap) 03/22/2013 03/22/2003 RSV Immunization Adult Patients (1 - 1-dose 75+ series) 2018 Cholesterol Screening (Lipid Panel) 07/14/2022 Falls Risk Assessment 07/14/2022 Medicare Annual Wellness Visit 07/14/2022 Osteoporosis Screening (Bone Density Screening) 07/14/2022 Social Influencers of Health Screening 07/14/2022 COVID-19 Vaccine () 04/01/2024 05/11/2022, 02/08/2022, 06/02/2021 Depression Screening 08/01/2024 Diabetes: Annual Urine Albumin-Creatinine Ratio (uACR) 09/21/2024 Diabetes: Blood Sugar Control Test (HGBA1C) 09/21/2024 Hypertension/CHF/CAD Annual BMP Blood Test 09/21/2024 Influenza Vaccine (#1) 2025 , 05/02/2023, 04/01/2023, Additional history exists MMR Vaccines Aged Out 03/22/2006 No longer eligi ble based on patient's age to complete this topic Pneumococcal Vaccine: 50+ Years Completed 10/24/2024, 03/05/2008 HIB Vaccines Aged Out No longer eligi ble based on patient's age to complete this topic HPV Vaccines Aged Out No longer eligi ble based on patient's age to complete this topic IPV Vaccines Aged Out No longer eligi ble based on patient's age to complete this topic Meningococcal ACWY Vaccine Aged Out N o longer eligible based on patient's age to complete this topic Meningococcal B Vaccine Aged Out No l onger eligible based on patient's age to complete this topic RSV Immunization Patients Under 20 months Aged Out No longer eligible based on patient's age to complete this topic Varicella Vaccines Aged Out No longer eligible based on patient's age to complete this topic Procedures Procedure Name Priority Date/Time Associated Diagnosis Comments MR LUMBAR SPINE WO CONTRAST Routine 03/03/2025 10:33 AM EDT Pain from Last 3 Months Results * MR Lumbar Spine wo Contrast (03/03/2025 10:33 AM EDT) Anatomical Region Laterality Modality L-spine, Spine Magnetic Resonan ce 03/07/2025 12:5 3 PM EDT Impressions 03/07/2025 1:17 PM EDT Multilevel degenerative changes of the lumbar spine, most prominent at L4-5 where there is grade 1 anterolisthesis and moderate spinal stenosis. -------- FINAL REPORT -------- Dictated By: Hernandez Latham Dictated Date: 03/07/2025 12:53 ET Assigned Physician: Hernandez Latham Reviewed and Electronically Signed By: Hernandez Latham Signed Date: 03/07/2025 13:17 ET Workstation ID: [id number] Transcribed By: Self Edit Transcribed Date: 03/07/2025 12:53 ET Narrative 03/07/2025 1:17 PM EDT PROCEDURE: MRI of the lumbar spine without contrast. TECHNIQUE: Multiplanar multisequence MRI of the lumbar spine without intravenous contrast administration. HISTORY: pain COMPARISON: 11/28/2018. FINDINGS: There are a few very small bilateral T2 hyperintense renal cortical lesions, likely cysts. Mild paraspinous muscular atrophy. Moderate Baastrup's changes. No compression deformity. 8 mm anterolisthesis at L4-5. Slight anterolisthesis at L5-S1. Modic endplate changes at L4-5. No suspicious marrow infiltrative lesion. Normal position of the conus at T12. Lumbar disc levels: L1-2: Minimal degenerative irregularity of the endplates and facet joints without spinal or foraminal stenosis. L2-3: Minimal degenerative irregularity of the endplates and facet joints without spinal or foraminal stenosis. L3-4: Mild degenerative changes of the facet joints without significant spinal or foraminal stenosis. L4-5: 8 mm anterolisthesis. Moderate disc space height loss and endplate irregularity. Uncovering of the disc with a moderate size superiorly projecting central extrusion. Widening of the facet joints consistent with hypermobility, with mild left greater than right ligamentum flavum hypertrophy. Mild-moderate bilateral facet arthropathy. Mild bilateral foraminal stenosis. Moderate spinal stenosis. L5-S1: Moderate disc space height loss and endplate irregularity. Slight anterolisthesis. There is a small left foraminal focal disc herniation with extruded slightly superiorly. Moderate bilateral facet arthropathy. Mild bilateral foraminal stenosis without spinal stenosis. Procedure Note Hernandez Latham MD - 03/07/2025 PROCEDURE: MRI of the lumbar spine without contrast. TECHNIQUE: Multiplanar multisequence MRI of the lumbar spine withoutintravenous contrast administration. HISTORY: pain COMPARISON: 11/28/2018. FINDINGS: There are a few very small bilateral T2 hyperintense renal corticallesions, likely cysts. Mild paraspinous muscular atrophy. Moderate Baastrup's changes. No compression deformity. 8 mmanterolisthesis at L4-5. Slight anterolisthesis at L5-S1. Modic endplatechanges at L4-5. No suspicious marrow infiltrative lesion. Normal position of the conus at T12. Lumbar disc levels: L1-2: Minimal degenerative irregularity of the endplates and facet jointswithout spinal or foraminal stenosis. L2-3: Minimal degenerative irregularity of the endplates and facet jointswithout spinal or foraminal stenosis. L3-4: Mild degenerative changes of the facet joints without significantspinal or foraminal stenosis. L4-5: 8 mm anterolisthesis. Moderate disc space height loss and endplateirregularity. Uncovering of the disc with a moderate size superiorlyprojecting central extrusion. Widening of the facet joints consistentwith hypermobility, with mild left greater than right ligamentum flavumhypertrophy. Mild-moderate bilateral facet arthropathy. Mild bilateralforaminal stenosis. Moderate spinal stenosis. L5-S1: Moderate disc space height loss and endplate irregularity. Slightanterolisthesis. There is a small left foraminal focal disc herniationwith extruded slightly superiorly. Moderate bilateral facet arthropathy.Mild bilateral foraminal stenosis without spinal stenosis. IMPRESSION: Multilevel degenerative changes of the lumbar spine, most prominent atL4-5 where there is grade 1 anterolisthesis and moderate spinalstenosis. -------- FINAL REPORT -------- Dictated By: Hernandez Latham Dictated Date: 03/07/2025 12:53 ET Assigned Physician: Hernandez Latham Reviewed and Electronically Signed By: Hernandez Latham Signed Date: 03/07/2025 13:17 ET Workstation ID: [id number] Transcribed By: Self Edit Transcribed Date: 03/07/2025 12:53 ET James Ventura MD IMG MRI PROCEDURES Final Resul t from Last 3 Months Insurance [employer] Care Teams Transitions Manager Rn Relationship Specialty Start Date End Date James Ventura MD PCP - General Internal Medicine 10/11/18
== END 2025-03-20 11:34 | disposition home or self-care (01) ==
LOC: HO.HNS 10:41
PROVIDERS: Referring Provider Anesthesiology; Visit Provider Physician Assistant
DX: M43.16 Spondylolisthesis, lumbar region (principal)
CPT/HCPCS: 99204

== ENCOUNTER 2025-03-20 10:40 | Outpatient (REF) | payer MEDICARE, SELFPAY ==
--- NOTE | ~2025-03-20 | XR_ITS ---
EXAMINATION: XR LUMBOSACRAL SPINE CLINICAL INFORMATION: M54.50 - Low back pain, unspecified COMPARISON: None available. TECHNIQUE: 4 views of the lumbar spine, inclusive of flexion and extension views, were obtained. FINDINGS: There is mild diffuse demineralization. There is a minimal levoconvex scoliosis centered at L4-5. There is a normal lumbar lordosis. There is no fracture or compression deformity. There is no suspicious bone lesion. Mild to moderate diffuse disc degeneration, with severe changes at L4-5 and L5-S1. There is a 13 mm anterolisthesis of L4 upon L5 with probable full-thickness pars defects. No additional subluxation. This remains grossly stable in flexion and extension without evidence of instability. Degenerative facet changes most notable L3-S1. Soft tissues demonstrate diffuse vascular calcifications. XR/XR lumbar spine 4V min IMPRESSION: 1. No acute findings of the lumbar spine. 2. Grade 1 spondylolisthesis L4-5, without evidence of instability on flexion and extension views. 3. Moderate degenerative spondylosis. Electronically signed by: Herman Wong MD 03/20/2025 12:12 PM EDT
== END 2025-03-20 10:41 | disposition home or self-care (01) ==
LOC: HO.HOSX 10:40
PROVIDERS: Referring Provider Anesthesiology; Visit Provider Physician Assistant
DX: M43.16 Spondylolisthesis, lumbar region (principal); M99.83 Other biomechanical lesions of lumbar region; M54.50 Low back pain, unspecified
CPT/HCPCS: 72110; 99202

== ENCOUNTER → 2025-03-20 11:44 | Outpatient (BNV) | payer MEDICARE, SELFPAY | PROVIDERS: Referring Provider Anesthesiology; Visit Provider Radiology Diagnostic Radiology | DX: M47.816 Spondylosis without myelopathy or radiculopathy, lumbar region (principal) | CPT/HCPCS: 72110 ==